=== PATIENT | female | born 1980 | race Caucasian/White ===

== ENCOUNTER 2019-06-12 13:51 | Emergency (ER) | payer OTHER, SELFPAY ==
[2019-06-12 14:02] VITALS: BP 112/65; PULSE 62; RESP 18; TEMP 36.3; O2SAT 100
--- NOTE | 2019-06-12 14:14 | ED.GENADULT ---
HPI - General Adult General Chief complaint: Urogenital-Female Stated complaint: Left side Pain Time Seen by Provider: 06/12/19 14:16 Source: patient and RN notes reviewed Mode of arrival: ambulatory Limitations: no limitations History of Present Illness HPI narrative: This is a 39 years old female presents to the office with multiple complaints. She complains of sinus congestion, and right ear cracking when she opens her mouth for three days. She also reports left upper quadrant abdominal pain for one week; sometimes pain radiated down to her left lower quadrant. Admits to history of kidney stone, symptom is reminiscent with her previous kidney stone; however pain last longer this time that previous time. She also reported nauseous; mostly in the morning. She also admits to history of constipation, normally takes Linzess for it however she has not been taking it because it was too expensive. She reports large BM yesterday; but it was hard stools where she has to push hard. No treatment prior to arrival.Denies concern for STD, , stated she has not had sexual intercourse for a while. She also admits that she did not drink enough water. Related Data Home Medications Medication Instructions Recorded Confirmed naltrexone 50 mg PO DAILY 06/12/19 06/12/19 spironolactone 100 mg PO DAILY 06/12/19 06/12/19 Allergies Allergy/AdvReac Type Severity Reaction Status Date / Time No Known Allergies Allergy Verified 06/12/19 14:06 Review of Systems Review of Systems: Narrative: CONSTITUTIONAL: Denies fever or chills ENT: Denies sore throat CARDIOVASCULAR: Denies chest pain RESPIRATORY: Denies cough GASTROINTESTINAL: Reports left side abdominal pain with nausea. Denies diarrhea. GENITOURINARY: Denies urinary symptoms or discharge SKIN: Denies rash MUSCULOSKELETAL: Denies flank pain NEUROLOGIC: Denies lightheaded PMFSH Past Medical History Medical History (Updated 06/12/19 @ 14:33 by LAXMI Drake) Anxiety and depression Asthma Hx of supraventricular tachycardia Comments At time of signature, I agree with nursing past medical, surgical, social and family history. There is no relevant family history pertinent to the presenting complaint. Exam Narrative: Exam Narrative: GENERAL: This is a well-nourished, well-developed patient, in no apparent distress. EYES: Sclera clear/white. Vision is grossly intact. EARS: External ears normal, auditory canals clear and without drainage, fluild level noted in both TMs; without perforation. Hearing grossly intact. NOSE: External nose normal with no obvious nasal discharge, nares without redness, no rhinorrhea. THROAT: Mucous membranes moist, posterior pharynx clear. NECK: Neck supple, non-tender without lymphadenopathy, masses or thyromegaly. CARDIOVASCULAR: Regular rate and rhythm without murmurs, gallops, or rubs. RESPIRATORY: Clear to auscultation. Breath sounds equal bilaterally. No wheezes, rales, or rhonchi. GASTROINTESTINAL: Abdomen soft, non-tender, nondistended. Bowel sounds are active. No hepato-splenomegaly, or palpable masses. No guarding.No CVA tenderness. Skin intact. NEURO: awake, alert, and oriented to person, place and time. There were no obvious focal neurologic abnormalities. Steady gait Rossana Coma Scale Eye Opening: Spontaneous 4 Rossana Coma Scale Motor: Obeys Commands 6 Rossana Coma Scale Verbal: Oriented 5 Course Vital Signs Vital signs: Vital Signs Temperature 97.3 F L 06/12/19 14:02 Pulse Rate 62 06/12/19 14:02 Respiratory Rate 18 06/12/19 14:02 Blood Pressure 112/65 06/12/19 14:02 Pulse Oximetry 100 06/12/19 14:02 Temperature 97.3 F L 06/12/19 14:02 Pulse Rate 62 06/12/19 14:02 Respiratory Rate 18 06/12/19 14:02 Blood Pressure 112/65 06/12/19 14:02 Pulse Oximetry 100 06/12/19 14:02 Medical Decision Making MDM Narrative Medical decision making narrative: Discharge instructions reviewed with patient,
== END 2019-06-12 14:35 | disposition home or self-care (01) ==
PROVIDERS: Emergency Provider Nurse Practitioner
DX: R31.9 Hematuria, unspecified (principal); Z87.19 Personal history of other diseases of the digestive system; J45.909 Unspecified asthma, uncomplicated
CPT/HCPCS: 81003; 87086; 99213; G0463

== ENCOUNTER 2019-10-22 13:17 | Emergency (ER) | payer OTHER, SELFPAY ==
--- NOTE | ~2019-10-22 | XR_ITS ---
EXAMINATION: XR chest 1V portable 10/22/2019 13:57 INDICATION: Weakness PROCEDURE: AP portable chest COMPARISON: Comparison to multiple prior studies sequentially, with oldest reviewed study dated 11/20. FINDINGS: The lungs are clear. The cardiomediastinal silhouette is within normal limits. There are no pleural effusions. There is no pneumothorax suspected. IMPRESSION: 1: NO ACUTE CARDIOPULMONARY DISEASE. Reviewed, dictated and finalized at location A.
[2019-10-22 13:21] VITALS: BP 126/81; PULSE 90; RESP 12; TEMP 37.2; O2SAT 100
[2019-10-22 13:27] VITALS: PULSE 74
--- NOTE | 2019-10-22 13:27 | ECG_ITS ---
Measurements Intervals [place] Rate: 77 P: -15 FL: 92 QRS: 64 QRSD: 85 T: 50 QT: 386 QTc: 437 Interpretive Statements SINUS RHYTHM WITH SHORT [place] INTERVAL INCOMPLETE RIGHT BUNDLE BRANCH BLOCK BASELINE ARTIFACT- I, II, III, AVL, AVF BORDERLINE ECG Electronically Signed On 10-22-2019 14:53:13 CDT by Balwinder Islas D.O.
[2019-10-22] MEDS: SODIUM CHLORIDE 0.9% IV 1,000 ML 999 ML IV CONT (13:39)
[2019-10-22 13:41] LABS: Basophils Percent Auto 0.3 % (0.2-1.2); Eosinophils Absolute Auto 0.1 K/mm3 (0-0.3); Eosinophils Percent Auto 1.3 % (0-4.4); Hematocrit 36.5 % (37.0-47.0); Hemoglobin 12.1 g/dL (12.0-15.0); Immature Granulocyte Absolute 0.03 K/mm3 (0.00-0.031); Immature Granulocyte Percent A 0.3 % (0-0.5); Lymphocytes Absolute Auto 2.06 K/mm3 (0.9-3.2); Lymphocytes Percent Auto 23.8 % (18.3-44.2); Mean Corpuscular HGB Conc 33.2 g/dl (32-36); Mean Corpuscular Hemoglobin 31.6 pg (26-34); Mean Corpuscular Volume 95.3 fl (80-100); Mean Platelet Volume 11.2 fl (7.4-10.4); Monocytes Absolute Auto 0.5 K/mm3 (0.1-0.6); Monocytes Percent Auto 5.3 % (2.6-8.5); Platelet Count Result 301 k/mm3 (150-375); Red Blood Count 3.83 M/mm3 (4.2-5.4); White Blood Count 8.7 K/mm3 (4.5-10.0)
--- NOTE | 2019-10-22 13:49 | ED.GENADULT ---
HPI - General Adult General Chief complaint: Weakness Stated complaint: dizzy Time Seen by Provider: 10/22/19 13:26 History of Present Illness HPI narrative: Patient is a 39 y/o female complaining of severe generalized weakness for 2 weeks. She states that her weakness is worsened by exertion. She denies any chest pain. She had an episode of tachycardia approximately 2 weeks ago with HR in 200s, but it resolved spontaneously. She has history of SVT. She has some SOB, poor appetite and nausea. She has no fever. Related Data Home Medications Medication Instructions Recorded Confirmed spironolactone 100 mg PO DAILY 06/12/19 06/12/19 alprazolam 0.5 mg PO PRN PRN 10/22/19 ampicillin 500 mg PO BID 10/22/19 cyclobenzaprine 5 mg PO PRN PRN 10/22/19 Allergies Allergy/AdvReac Type Severity Reaction Status Date / Time No Known Allergies Allergy Verified 10/22/19 13:28 Review of Systems Constitutional: Constitutional: Denies chills, Denies fever(s), Denies headache(s) and Reports weakness Eyes: Eyes: Denies blurry vision ENT: Denies headache(s) and Denies neck pain Cardiovascular: Cardiovascular: Denies chest pain, Reports rapid heart rate and Reports dyspnea Respiratory: Respiratory: Denies cough and Reports dyspnea Gastrointestinal: Gastrointestinal: Denies abdominal pain, Denies diarrhea, Denies nausea and Denies vomiting Genitourinary: Genitourinary: Denies hematuria and Denies dysuria Musculoskeletal: Musculoskeletal: Denies back pain and Denies neck pain Neurologic: Denies headache(s) and Denies weakness [facility] Past Medical History Medical History (Updated 10/22/19 @ 17:57 by Genevieve Fowler MD) Anxiety and depression Asthma Hx of supraventricular tachycardia Social History Social History Gender identity (if verbalized by the patient): Female Exam Const: General: no acute distress and well developed Orientation/consciousness: oriented to person, oriented to place, oriented to time and patient oriented x3 HENMT: Head: normocephalic Ears: external ears normal General nose exam: Normal external nose present Eyes: General: appearance normal, both eyes and all related structures Conjunctivae: conjunctivae normal Neck: Neck: normal visual inspection and full ROM Chest: Chest palpation & inspection: normal inspection of the chest and no tenderness Resp: Effort & Inspection: normal respiratory effort Auscultation: clear to auscultation bilaterally Cardio: Rate: regular rate Rhythm: regular rhythm GI: GI Palp: No abdominal tenderness and Yes Soft to palpation Skin: General skin exam: normal color and turgor normal Neuro: General: oriented to person, oriented to place, oriented to time and patient oriented x3 Cognition (Neuro): normal cognition Extrem: General: normal to inspection, full ROM and no pedal edema Psych: Appearance: grossly normal Mental Status: mental status grossly normal Affect: Anxious affect present Course Vital Signs Vital signs: Vital Signs Temperature 37.2 C 10/22/19 13:21 Pulse Rate 90 10/22/19 13:21 Respiratory Rate 12 10/22/19 13:21 Blood Pressure 126/81 10/22/19 13:21 Pulse Oximetry 100 10/22/19 13:21 Temperature 37.0 C 10/22/19 18:13 Pulse Rate 85 10/22/19 17:37 Respiratory Rate 15 10/22/19 17:37 Blood Pressure 98/60 L 10/22/19 17:37 Pulse Oximetry 100 10/22/19 17:37 Medical Decision Making Vital Signs Vital Signs: Vital Signs Temperature 37.2 C 10/22/19 13:21 Pulse Rate 90 10/22/19 13:21 Respiratory Rate 12 10/22/19 13:21 Blood Pressure 126/81 10/22/19 13:21 Pulse Oximetry 100 10/22/19 13:21 Temperature 37.0 C 10/22/19 18:13 Pulse Rate 85 10/22/19 17:37 Respiratory Rate 15 10/22/19 17:37 Blood Pressure 98/60 L 10/22/19 17:37 Pulse Oximetry 100 10/22/19 17:37 Lab Data Result diagrams: 10/22/19 13:34 10/22/19 13:34 Labs: Lab Results
[2019-10-22 13:53] LABS: Add Urine Microscopic? YES; Appearance Urine Clear (Clear); Bacteria Urine 1+ /hpf; Bilirubin Urine Negative (Negative); Blood Urine 1+ (Negative); Color Urine Straw (Yellow); Glucose Urine UA Negative (Negative); Ketones Urine Negative (Negative); Leukocyte Esterase Ur Negative LEU/UL (Negative); Mucus Urine Rare /lpf; Nitrate Urine Negative (Negative); Protein Urine Negative (Negative); RBC Urine 0-2 /hpf (0-2); Specific Grav Ur 1.009 (1.001-1.035); Squamous Epithelial Cell Urine Many /hpf (Few); Urobilinogen Urine Negative mg/dL (<2.0); WBC Urine 0-3 /hpf
[2019-10-22 13:55] LABS: Alanine Aminotransferase 8 U/L (4-35); Albumin Level 4.5 g/dL (3.5-5.1); Alkaline Phosphatase 45 U/L (38-126); Aspartate Amino Transferase 21 U/L (14-36); Bilirubin,Total 0.4 mg/dL (0.2-1.3); Blood Urea Nitrogen 11 mg/dL (7-17); Carbon Dioxide 26 mmol/L (22-30); Chloride 104 mmol/L (98-107); Estimated CRCL calculation 92 ml/min; Estimated Glomerular Filt Rate > 60; Glucose 103 mg/dL (65-105); Potassium 4.1 mmol/L (3.4-5.0); Sodium 137 mmol/L (137-145)
[2019-10-22 14:07] LABS: NT Pro B Type Natriuretic Pept 38 PG/ML (5-100); Troponin I < 0.012 ng/mL (0.000-0.034)
[2019-10-22 14:55] VITALS: BP 96/60; PULSE 76; RESP 26; O2SAT 100
[2019-10-22 16:20] VITALS: BP 93/51; PULSE 68; RESP 15; O2SAT 100
[2019-10-22 17:09] LABS: Troponin I < 0.012 ng/mL (0.000-0.034)
[2019-10-22 17:37] VITALS: BP 98/60; PULSE 85; RESP 15; O2SAT 100
[2019-10-22 18:13] VITALS: TEMP 37
== END 2019-10-22 18:16 | disposition home or self-care (01) ==
PROVIDERS: Emergency Provider Emergency Medicine
DX: R53.1 Weakness (principal); R00.2 Palpitations; F41.8 Other specified anxiety disorders; J45.909 Unspecified asthma, uncomplicated
CPT/HCPCS: 36415; 71045; 80053; 81001; 81025; 83880; 84443; 84484; 85025; 93005; 96360; 99284; J7030

== ENCOUNTER 2019-12-22 09:46 | Emergency (ER) | payer OTHER, SELFPAY ==
--- NOTE | ~2019-12-22 | XR_ITS ---
EXAMINATION: XR foot LT min 3V DATE: 12/22/2019 10:21 INDICATION: Left fifth toe injury. TECHNIQUE: 4 views of left foot were obtained. COMPARISON: None. FINDINGS: Bone alignment is normal. No fracture. There is mild osteoarthritis of first and fifth meta tarsophalangeal joints. IMPRESSION: 1. Mild polyarticular osteoarthritis. Reviewed, dictated and finalized at location A.
--- NOTE | 2019-12-22 09:52 | ED.GENADULT ---
HPI - General Adult General Chief complaint: Extremity Injury, Lower Stated complaint: inury right 5th toe Time Seen by Provider: 12/22/19 09:52 Source: patient Mode of arrival: ambulatory Limitations: no limitations History of Present Illness HPI narrative: 39-year-old female patient presents to the [facility] with complaints of left pinky toe pain. Patient states that she dropped the canister of her vacuum on it yesterday while wearing flip-flops. Patient states a pretty much did hit mostly the pinky toe. Patient states she has had pain when putting pressure on it and states she has been mostly walking on the ball of her left foot. Patient states that she did take some Tylenol yesterday but denies any ice or ibuprofen. Patient states she still does have sensation to the toe but is dull compared to the others. Related Data Home Medications Medication Instructions Recorded Confirmed levonorgestrel [Mirena] 1 device INTRAUTERINE ONCE 12/22/19 12/22/19 naltrexone microspheres [Vivitrol] 380 mg IM ONCE 12/22/19 12/22/19 Allergies Allergy/AdvReac Type Severity Reaction Status Date / Time No Known Allergies Allergy Verified 12/22/19 10:08 Review of Systems Review of Systems: Narrative: CONSTITUTIONAL: Denies fever, chills, or sweats. EYES: Denies visual changes, redness, or discharge. ENT: Denies rhinorrhea, congestion, sore throat, or otalgia. CARDIOVASCULAR: Denies chest pain, palpitations, or edema. RESPIRATORY: Denies cough or dyspnea. GASTROINTESTINAL: Denies abdominal pain, nausea, vomiting, or diarrhea. GENITOURINARY: Denies dysuria or hematuria. SKIN: Denies rash or itching. MUSCULOSKELETAL: Denies back pain, joint pain, or myalgia. Positive left pinky toe pain NEUROLOGIC: Denies headache, numbness, or weakness. PSYCHIATRIC: Denies anxiety or depression. [facility] Past Medical History Medical History (Updated 12/22/19 @ 10:31 by LAXMI Campos) Alcoholism Anxiety and depression Asthma Hx of supraventricular tachycardia Social History Social History Gender identity (if verbalized by the patient): Female Comments At the time of my signature I agree with nursing past medical history, surgical, social, and family history. There is no relevant family history pertinent to the presenting complaint. Exam Narrative: Exam Narrative: GENERAL: Well-appearing, well-nourished, and in no acute distress. HEAD: Normocephalic, atraumatic. EYES: PERRLA and EOMI. ENT: Nares clear, no rhinorrhea or epistaxis. Mucous membranes moist. NECK: Supple. No lymphadenopathy CHEST: Clear to auscultation. No respiratory distress. HEART: Regular rate and rhythm. No murmur heard. Normal peripheral pulses. ABDOMEN: Soft, nontender, nondistended, normal active bowel sounds. EXTREMITIES: Patient able to bear weight and ambulate but has increased pain to the left pinky toe. Patient does have slight swelling and ecchymosis noted to the left pinky toe with pain to palpation of the area. No lesions, ulcers or break in skin integrity. The L foot is without obvious asymmetry or deformity when compared to the R foot. nontender to palpation over the midfoot or hindfoot or sole. Normal plantar/dorsiflexion, inversion/eversion. Distal motor and neurovascular status are intact SKIN: Warm, dry, no rash. NEURO: No focal deficits. Alert and oriented x3. Course Reevaluation(s) Reevaluation #1: Reevaluated patient after her x-ray had resulted. Discussed with her that the x-ray does not show any acute fractures to her pinky toe. Discussed with her this most likely is a contusion or bruise from when she dropped the canister on her toe. Discussed with her that this should heal on its own with time. Discussed with patient she can take Tylenol and ibuprofen for the pain, elevate it and ice it as needed for swelling and pain. Patient verbalized understanding. Offered to give patient a postop shoe
[2019-12-22 10:02] VITALS: BP 113/73; PULSE 69; RESP 16; TEMP 37.2; O2SAT 100
== END 2019-12-22 10:34 | disposition home or self-care (01) ==
PROVIDERS: Emergency Provider Nurse Practitioner Family
DX: S90.122A Contusion of left lesser toe(s) without damage to nail, initial encounter (principal); W20.8XXA Other cause of strike by thrown, projected or falling object, initial encounter; J45.909 Unspecified asthma, uncomplicated
CPT/HCPCS: 73630; 99213; G0463

== ENCOUNTER 2020-09-20 08:29 | Outpatient (CLI) | payer OTHER, SELFPAY ==
--- NOTE | ~2020-09-20 | MM_ITS ---
EXAMINATION: MM screening shruthi BI w karen HISTORY: Screening TECHNIQUE: Craniocaudal and mediolateral oblique 3-D tomosynthesis images were obtained and synthetic 2-D images were generated. CAD analysis was submitted and interpreted. COMPARISON: No prior mammogram is available for comparison at this institution. BREAST PARENCHYMAL COMPOSITION: The breasts are heterogenously dense, which may obscure small masses FINDINGS: Bilateral breast asymmetries scattered throughout both breasts. There are no suspicious sherrill cifications. IMPRESSION: 1. Bilateral breast asymmetries. 2. Additional mammographic views and possible breast ultrasound are recommended BI-RADS Category 0: Incomplete: Needs additional imaging evaluation. Reviewed, dictated and finalized at location A.
== END 2020-09-20 08:30 | disposition home or self-care (01) ==
LOC: ANHIMG 08:32
PROVIDERS: PCP Nurse Practitioner; Visit Provider Obstetrics & Gynecology
DX: Z12.31 Encounter for screening mammogram for malignant neoplasm of breast (principal); R92.8 Other abnormal and inconclusive findings on diagnostic imaging of breast
CPT/HCPCS: 77063; 77067

== ENCOUNTER 2020-10-17 12:14 | Outpatient (CLI) | payer OTHER, SELFPAY ==
--- NOTE | ~2020-10-17 | MMUS_ITS ---
EXAMINATION: MM diagnostic mammo BI, US breast BI limited HISTORY: Bilateral breast asymmetries on screening mammogram TECHNIQUE: Additional 3-D tomosynthesis images of the breasts were performed and synthetic 2-D images were generated. CAD analysis was submitted and interpreted. High resolution limited bilateral breast ultrasound was performed. COMPARISON: 09/20/2020 BREAST PARENCHYMAL COMPOSITION: The breasts are heterogeneously dense, which may obscure small masses . FINDINGS: MAMMOGRAPHIC FINDINGS: No definite asymmetry persists with spot compression of the breasts. No suspicious mass, calcificatio n, or architectural distortion. Intramammary lymph node is noted far posterior third of the upper out er quadrant of the left breast. ULTRASOUND: Right breast: There is a possible 8 mm x 2 mm oval, hypoechoic mass with indistinct margins at the 2: 00 location near the nipple with no posterior features or internal vascularity Left breast: There is a 6 mm x 4 mm oval, circumscribed, parallel, hypoechoic mass with mild posterio r shadowing and no internal vascularity at the 8:00 location 2 cm from the nipple. An 8 mm x 4 mm ova l, circumscribed, parallel, complex cystic and solid mass with no posterior features or internal vasc ularity is seen at the 12:00 location 1 cm from the nipple. There is an 8 mm cyst at 12:00 location. IMPRESSION: 1. Indeterminate mass at 8:00 location 2 cm from the nipple in the left breast for which ultrasound-g uided biopsy is recommended. 2. Additional probably benign sonographically detected masses at the 2:00 location in the right breas t and the 12:00 location in the left breast for which follow-up targeted ultrasound in six months is recommended. BI-RADS category 4, suspicious findings. Reviewed, dictated and finalized at location A. IMPRESSION: 1. Indeterminate mass at 8:00 location 2 cm from the nipple in the left breast for which ultrasound-guided biopsy is recommended. 2. Additional probably benign sonographically detected masses at the 2:00 locat ion in the right breast and the 12:00 location in the left breast for which fol low-up targeted ultrasound in six months is recommended. BI-RADS category 4, suspicious findings.
== END 2020-10-17 12:15 | disposition home or self-care (01) ==
LOC: ANHIMG 12:15
PROVIDERS: PCP Nurse Practitioner; Visit Provider Obstetrics & Gynecology
DX: R92.8 Other abnormal and inconclusive findings on diagnostic imaging of breast (principal); N64.89 Other specified disorders of breast; N63.24 Unspecified lump in the left breast, lower inner quadrant
CPT/HCPCS: 76642; 77066

== ENCOUNTER 2021-01-29 09:51 | Emergency (ER) | payer OTHER, SELFPAY ==
[2021-01-29 10:59] VITALS: BP 103/65; PULSE 61; RESP 16; TEMP 36.9; O2SAT 99
[2021-01-29] MEDS: TETANUS,DIPHTHERIA,AC PERTUSSIS ADULT (0.5 ML) BOOSTRIX IM (11:10)
--- NOTE | 2021-01-29 12:01 | ED.GENADULT ---
HPI - General Adult General Chief complaint: Animal Bite Stated complaint: dog bite Source: patient Mode of arrival: ambulatory Limitations: no limitations History of Present Illness HPI narrative: Patient is a 40-year-old female who presents to the urgent care via POV for evaluation of a dog bite that occurred last night. She states she was bitten on her right pinky finger. She reports bruising, swelling, and pain. Pain is resolved with remaining still and worsens with movement. She states her dog bit her because it is a stupid dog . Dog is up-to-date on vaccinations per patient. Animal control was not notified. Related Data Home Medications Medication Instructions Recorded Confirmed levonorgestrel [Mirena] 1 device INTRAUTERINE ONCE 12/22/19 01/29/21 naltrexone microspheres [Vivitrol] 380 mg IM ONCE 12/22/19 01/29/21 alprazolam 0.5 mg PO DAILY 01/29/21 01/29/21 famotidine 40 mg PO DAILY 01/29/21 01/29/21 fluticasone propionate 1 mcg INTRANASAL DAILY 01/29/21 01/29/21 Allergies Allergy/AdvReac Type Severity Reaction Status Date / Time No Known Allergies Allergy Verified 01/29/21 10:57 Review of Systems Review of Systems: Pertinent negatives: fever, chills, sweats, change in appetite, poor p.o. intake, malaise, rash, warmth, numbness, tingling, loss of sensation, deformity, decreased range of motion, weakness, difficulty with ambulation/coordination, nausea, vomiting, lymphadenopathy, shortness of breath, chest pain, heart palpitations, and heart murmur. PMFSH Past Medical History Medical History Alcoholism Anxiety and depression Asthma Hx of supraventricular tachycardia Social History Social History Gender identity (if verbalized by the patient): Female Comments I have reviewed and agree with the patient's past medical, surgical, social, and family hx as documented by the RN. There is no relevant family history pertinent to the presenting complaint. Exam Narrative: GENERAL: Well-appearing, well-nourished, and in no acute distress. HEAD: Normocephalic, atraumatic. NECK: Supple. No Lymphadenopathy or nuchal rigidity appreciated. CHEST: Bilateral lung chavez are clear to auscultation. No respiratory distress. No evidence of cough or pleuritic cp upon examination. HEART: Regular rate and rhythm. No murmur, gallop, or rub heard. EXTREMITIES: 0.5 cm abrasion and small contusion with mild swelling noted to dorsal aspect of right fifth digit. No evidence of injury, decreased ROM, cyanosis, laceration, deformity, rash, or puncture. Mild pain elicited with active/passive flexion and extension of right fifth digit.. No evidence of dislocation, ligament laxity, effusion, or pain at rest. Pulses palpable at 2+, strength 5/5, and cap refill < 3 seconds in affected extremity. DTRs normal. Gait normal. SKIN: Warm, dry, no rash. NEURO: No focal deficits. Alert and oriented x3. Course Course Emergency Course: The patient/guardian displays adequate decision making capability and despite a detailed discussion of alternatives, benefits, risks, and consequences refuses x-ray. Vital Signs Vital signs: Vital Signs Temperature 98.5 F 01/29/21 10:59 Pulse Rate 61 01/29/21 10:59 Respiratory Rate 16 01/29/21 10:59 Blood Pressure 103/65 01/29/21 10:59 Pulse Oximetry 99 01/29/21 10:59 Temperature 98.5 F 01/29/21 10:59 Pulse Rate 61 01/29/21 10:59 Respiratory Rate 16 01/29/21 10:59 Blood Pressure 103/65 01/29/21 10:59 Pulse Oximetry 99 01/29/21 10:59 Reviewed Procedures Orthopedic Splinting/Casting Injury #1: Splinting/Casting Date: 01/29/21 Splinting/Casting Time: 12:15 Side: right Upper Extremity Injury Location: finger (Fifth digit) Upper Extremity Immobilizer: aluminum form splint Pre-Procedure Neuro Vascular Exam: annette
== END 2021-01-29 12:20 | disposition home or self-care (01) ==
PROVIDERS: Emergency Provider Nurse Practitioner Family
DX: S60.416A Abrasion of right little finger, initial encounter (principal); W54.0XXA Bitten by dog, initial encounter; Z23 Encounter for immunization; J45.909 Unspecified asthma, uncomplicated; F41.9 Anxiety disorder, unspecified
CPT/HCPCS: 29130; 90471; 90715; 99213; G0463

== ENCOUNTER 2021-06-27 16:44 | Emergency (ER) | payer OTHER, SELFPAY ==
[2021-06-27] VITALS (14 sets, daily range): BP systolic 108–128; BP diastolic 63–83; PULSE 68–92; RESP 11–27; TEMP 37.2; O2SAT 99–100
--- NOTE | ~2021-06-27 | XR_ITS ---
EXAMINATION: XR chest 2V DATE: 06/27/2021 17:44 INDICATION: Left-sided chest pain TECHNIQUE: PA and lateral views of the chest are obtained. COMPARISON: 10/22/2019 FINDINGS: The lungs are free of acute opacities. There is no pleural effusion or pneumothorax. The ca rdiomediastinal silhouette is normal. The visualized bones and soft tissues are unremarkable. IMPRESSION: 1. No acute cardiopulmonary abnormality. Reviewed, dictated and finalized at location F. OGRAPHER MODEL
--- NOTE | 2021-06-27 17:23 | ECG_ITS ---
Measurements Intervals [place] Rate: 86 P: 69 [place]: 120 QRS: 61 QRSD: 77 T: 52 QT: 379 QTc: 454 Interpretive Statements SINUS RHYTHM INCOMPLETE RIGHT BUNDLE BRANCH BLOCK BASELINE ARTIFACT- II, AVF BORDERLINE ECG Electronically Signed On 06-27-2021 20:53:41 [employer] by Balwinder Islas D.O.
[2021-06-27 18:02] LABS: Basophils Absolute Auto 0.1 K/mm3 (0.0-0.1); Basophils Percent Auto 0.7 % (0.2-1.2); Eosinophils Absolute Auto 0.1 K/mm3 (0-0.3); Eosinophils Percent Auto 0.9 % (0-4.4); Hemoglobin 13.2 g/dL (12.0-15.0); Immature Granulocyte Absolute 0.02 K/mm3 (0.00-0.031); Immature Granulocyte Percent A 0.2 % (0-0.5); Lymphocytes Percent Auto 29.4 % (18.3-44.2); Mean Corpuscular Hemoglobin 31.7 pg (26-34); Mean Corpuscular Volume 96.2 fl (80-100); Mean Platelet Volume 11.2 fl (7.4-10.4); Monocytes Absolute Auto 0.5 K/mm3 (0.1-0.6); Monocytes Percent Auto 6.3 % (2.6-8.5); Neutrophils Absolute Auto 5.1 K/mm3 (1.3-6.7); Neutrophils Percent Auto 62.5 % (45.5-73.1); Platelet Count Result 238 k/mm3 (150-375); Red Blood Count 4.16 M/mm3 (4.2-5.4); Red Cell Distribution Width 12.2 % (11.5-14.5); White Blood Count 8.2 K/mm3 (4.5-10.0)
[2021-06-27 18:12] LABS: Partial Thromboplastin Time 29.1 SECONDS (22.3-36.8); Prothrombin Time 13.1 Seconds (11.1-14.7)
[2021-06-27 18:22] LABS: Alanine Aminotransferase 13 U/L (4-35); Albumin Level 4.5 g/dL (3.5-5.1); Alkaline Phosphatase 47 U/L (38-126); Anion Gap 7 mmol/L (8-16); Aspartate Amino Transferase 27 U/L (14-36); Bilirubin,Total 0.4 mg/dL (0.2-1.3); Blood Urea Nitrogen 10 mg/dL (7-17); Calcium 8.9 mg/dL (8.4-10.2); Carbon Dioxide 24 mmol/L (22-30); Chloride 105 mmol/L (98-107); Estimated Glomerular Filt Rate > 60; Glucose 104 mg/dL (65-110); Lipase 125 U/L (23-300); Potassium 3.8 mmol/L (3.4-5.0); Sodium 136 mmol/L (137-145)
[2021-06-27 18:33] LABS: Troponin I < 0.012 ng/mL (0.000-0.034)
[2021-06-27] MEDS: BELLADONNA ALK/PHENOB ELIX 10 ML, MAG HYDROX/ALUMINUM HYD/SIMETH 30 ML, LIDOCAINE HCL 2... PO (18:47)
--- NOTE | 2021-06-27 18:54 | ED.BACK ---
HPI - Back Pain/Injury General Chief Complaint: Chest Pain <Inga Alcaraz APRN - Last Filed: 06/27/21 22:54> Stated Complaint: back pain, chest pain <Inga Alcaraz APRN - Last Filed: 06/27/21 22:54> Time Seen by Provider: 06/27/21 18:02 <Inga Alcaraz APRN - Last Filed: 06/27/21 22:54> Source: patient <Inga Alcaraz APRN - Last Filed: 06/27/21 22:54> Mode of arrival: ambulatory <Inga Alcaraz APRN - Last Filed: 06/27/21 22:54> Limitations: no limitations <Inga Alcaraz APRN - Last Filed: 06/27/21 22:54> History of Present Illness HPI Narrative: 41-year-old female with history of back issues and costochondritis presents today with complaints of back pain that radiated into her chest and down her left arm. Patient states the pain started at 10:00 this morning. Patient denies any trauma but did lift a tuba onto her bus today. Patient states this is something she normally does on Mondays and Fridays. Patient had taken a Tylenol at noon and 2 baby aspirin at 2 PM with some relief noted. At current time patient denies any left arm pain or back pain but does admit to some indigestion pain. Patient with burning rated at 3 out of 4. Patient did have some dizziness on the bus today which did cause some anxiety. Patient took Xanax today also. Her plan was to go home and take a muscle relaxer until the pain went down her left arm. Patient denies any medical history of hypertension, CAD, or high cholesterol. <Inga Alcaraz APRN - Last Filed: 06/27/21 22:54> Related Data Home Medications: Home Medications Medication Instructions Recorded Confirmed levonorgestrel [Mirena] 1 device INTRAUTERINE ONCE 12/22/19 06/27/21 alprazolam 0.5 mg PO DAILY 01/29/21 06/27/21 <Inga Alcaraz APRN - Last Filed: 06/27/21 22:54> Allergies/Adverse Reactions: Allergies Allergy/AdvReac Type Severity Reaction Status Date / Time No Known Allergies Allergy Verified 06/27/21 17:54 <Inga Alcaraz SENIOR DEVOPS ENGINEER - Last Filed: 06/27/21 22:54> Review of Systems Review of Systems: CONSTITUTIONAL: Denies fever, chills, or sweats. EYES: Denies visual changes, redness, or discharge. ENT: Denies rhinorrhea, congestion, sore throat, or otalgia. CARDIOVASCULAR: positve for chest pain, palpitations (chronic issues). Denies edema RESPIRATORY: Denies cough or dyspnea. GASTROINTESTINAL: Denies abdominal pain, nausea, vomiting, or diarrhea. GENITOURINARY: Denies dysuria or hematuria. SKIN: Denies rash or itching. MUSCULOSKELETAL: Denies joint pain, or myalgia. Endorses back pain. NEUROLOGIC: Denies headache, numbness, dizziness, or weakness. PSYCHIATRIC: Denies anxiety or depression. <Inga Alcaraz SENIOR DEVOPS ENGINEER - Last Filed: 06/27/21 22:54> PMFSH Past Medical History Medical History: Medical History Alcoholism Anxiety and depression Asthma Hx of supraventricular tachycardia <Inga Alcaraz, SENIOR DEVOPS ENGINEER - Last Filed: 06/27/21 22:54> Social History Social History: Social History Gender identity (if verbalized by the patient): Female <Inga Alcaraz SENIOR DEVOPS ENGINEER - Last Filed: 06/27/21 22:54> Exam Narrative: Right GENERAL: Well-appearing, well-nourished, and in no acute distress. HEAD: Normocephalic, atraumatic. EYES: PERRLA and EOMI. ENT: Nares clear, no rhinorrhea or epistaxis. Mucous membranes moist. Oropharynx without tonsillar hypertrophy exudate or other lesions. Bilateral TMs pearly stroud nonbulging NECK: Supple. No adenopathy or masses. No carotid bruits or JVD CHEST: Clear to auscultation. No respiratory distress. No wheezes rales or rhonchi. No pain with palpation HEART: Regular rate and rhythm. No murmur heard. Normal peripheral pulses. ABDOMEN: Soft, nontender, nondistended, normal active bowel sounds. EXTREMITIES: Normal range of motion. No edema. SKIN: Warm, dry, no rebecca
--- NOTE | 2021-06-27 19:17 | PC.NURSE ---
Report received from GARLAND Jacobs. Denies chest pain at present. Made aware of pending results.
== END 2021-06-27 20:27 | disposition home or self-care (01) ==
PROVIDERS: Emergency Medicine; Emergency Provider Nurse Practitioner Family
DX: R07.89 Other chest pain (principal); K21.9 Gastro-esophageal reflux disease without esophagitis; J45.909 Unspecified asthma, uncomplicated; F41.9 Anxiety disorder, unspecified; F32.A Depression, unspecified; I45.10 Unspecified right bundle-branch block
CPT/HCPCS: 36415; 71046; 80053; 83690; 84484; 85025; 85610; 85730; 93005; 99284; A9270

== ENCOUNTER 2022-02-13 11:00 | Outpatient (CLI) | payer OTHER, SELFPAY ==
--- NOTE | ~2022-02-13 | MMUS_ITS ---
EXAMINATION: MM diagnostic shruthi BI w karen, US breast RT complete, US breast LT limited HISTORY: Follow-up breast masses. TECHNIQUE: Additional 3-D tomosynthesis images of the breasts were performed and synthetic 2-D images were generated. CAD analysis was submitted and interpreted. High resolution complete right and limit ed left breast ultrasound was performed. COMPARISON: Comparison to multiple prior studies sequentially, with oldest reviewed study dated 09/20. BREAST PARENCHYMAL COMPOSITION: The breasts are heterogeneously dense, which may obscure small masses FINDINGS: MAMMOGRAPHIC FINDINGS: The breasts are stable. No new masses, calcifications or architectural distortion in either breast to suggest malignancy. ULTRASOUND: Complete right breast US of all 4 quadrants of the breasts and retroareolar region was reviewed. At 1 2:00, 3 cm from the nipple, there is a 6 mm intramammary lymph node. At 6:00, 5 cm from the nipple, t here is a cluster of microcysts measuring 4 mm. At 9:00, 5 cm from the nipple there is a cluster of m icrocysts measuring 7 x 4 x 2 mm. No suspicious masses are identified in the right breast to suggest malignancy. Limited left breast ultrasound: At 8:00, 3 cm from the nipple, there is an oval hypoechoic mass with posterior shadowing measuring 6 x 5 x 3 mm compared with 8 x 2 x 5 mm on prior examination. There is parallel orientation. IMPRESSION: 1. No evidence for malignancy in the right breast. Benign findings. 2: No significant change to hypoechoic left breast mass at 8:00, 3 cm from the nipple, allowing for d ifferences of technique. This mass is likely benign. BI-RADS CATEGORY 3-PROBABLY BENIGN FINDING RECOMMENDATION: Six-month follow-up diagnostic left mammogram and ultrasound recommended. Reviewed, dictated and finalized at location A. IMPRESSION: 1. No evidence for malignancy in the right breast. Benign findings. 2: No significant change to hypoechoic left breast mass at 8:00, 3 cm from the nipple, allowing for differences of technique. This mass is likely benign. BI-RADS CATEGORY 3-PROBABLY BENIGN FINDING RECOMMENDATION: Six-month follow-up diagnostic left mammogram and ultrasound re commended. IMPRESSION: 1. No evidence for malignancy in the right breast. Benign findings. 2: No significant change to hypoechoic left breast mass at 8:00, 3 cm from the nipple, allowing for differences of technique. This mass is likely benign. BI-RADS CATEGORY 3-PROBABLY BENIGN FINDING RECOMMENDATION: Six-month follow-up diagnostic left mammogram and ultrasound re commended.
== END 2022-02-13 11:01 | disposition home or self-care (01) ==
PROVIDERS: Visit Provider Obstetrics & Gynecology
DX: R92.8 Other abnormal and inconclusive findings on diagnostic imaging of breast (principal)
CPT/HCPCS: 76641; 76642; 77062; 77066; G0279

== ENCOUNTER 2022-03-09 19:39 | Emergency (ER) | payer OTHER, SELFPAY ==
--- NOTE | ~2022-03-09 | XR_ITS ---
EXAM: XR shoulder LT min 2V DATE: 03/09/2022 19:58 HISTORY: lt shoulder pain, . COMPARISON: None available. FINDINGS: Normal mineralization. No fracture or dislocation. No lytic or blastic lesion. Joint space s are maintained. No erosion or periosteal change. Soft tissues within normal limits. IMPRESSION: No acute osseous finding in the left shoulder. Reviewed, dictated and finalized at location K. EN THERAPY TEACHER
[2022-03-09 19:46] VITALS: BP 120/65; PULSE 67; RESP 16; TEMP 37.3; O2SAT 100
--- NOTE | 2022-03-09 20:10 | ED.UPPEXIN ---
HPI - Extremity Injury (Upper) General Chief Complaint: Extremity Injury, Upper Stated Complaint: Left Shoulder Pain Time Seen by Provider: 03/09/22 20:10 Source: patient, RN notes reviewed and old records reviewed Mode of arrival: ambulatory Limitations: no limitations History of Present Illness HPI narrative: 42-year-old female presents to the [facility] with complaints of left shoulder pain since Wednesday, 3 days. 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 Was having trouble opening and closing a window. Related Data Home Medications Medication Instructions Recorded Confirmed levonorgestrel 20 mcg/24 hours (8 1 device intrauterine ONCE 12/22/19 03/09/22 yrs) 52 mg intrauterine device (Mirena) Allergies Allergy/AdvReac Type Severity Reaction Status Date / Time No Known Allergies Allergy Verified 03/09/22 19:49 Review of Systems Review of Systems: All systems reviewed & are unremarkable except as noted in HPI and below Constitutional: Constitutional: Reports no additional constitutional complaints, Denies chills and Denies fever(s) Eyes: Eyes: Reports no additional eye complaints ENT: Reports system reviewed and no additional complaints, except as documented Cardiovascular: Cardiovascular: Reports no additional cardiovascular complaints Respiratory: Respiratory: Reports no additional respiratory complaints Gastrointestinal: Gastrointestinal: Reports no additional gastrointestinal complaints Musculoskeletal: Musculoskeletal: Reports arthralgias (Left anterior shoulder) Integumentary/Breasts: Skin/Breast: Reports system reviewed and no additional complaints, except as docu Neurologic: Reports system reviewed and no additional complaints, except as documented Psychiatric: Psychiatric: Reports no additional psychiatric complaints Allergic/Immunologic: Allergic/Immunologic: Reports no additional allergic/immunologic complaints [facility] Past Medical History Medical History Alcoholism Anxiety and depression Asthma Bloating Hx of colonic polyps Hx of supraventricular tachycardia Indigestion Irritable bowel syndrome with constipation LLQ abdominal tenderness LUQ abdominal pain Umbilical pain Social History Social History Smoking status: Never smoker Gender identity (if verbalized by the patient): Female Comments At the time of my signature, I reviewed and agree with the nursing past medical, surgical, social, and family history. There is no relevant family history pertinent to the patient complaint. Exam Const: General: healthy appearing, comfortable, no acute distress, well developed, alert and well nourished Nutritional Appearance: well nourished Orientation/consciousness: patient oriented x3 Limitations: no limitations HENMT: Head: normal to inspection Ears: external ears normal Face/Nose/Sinus: Normal external nose present Eyes: General: appearance normal, both eyes and all related structures Pupils: Equal, round and reactive pupils present Neck: Neck: normal visual inspection, full ROM, no lymphadenopathy and no meningeal signs Chest: Chest palpation & inspection: normal inspection of the chest Resp: Effort & Inspection: normal respiratory effort and no use of accessory muscles Auscultation: clear to auscultation bilaterally, no crackles, no rales, no rhonchi and no wheezes Cardio: Rate: regular rate Rhythm: regular rhythm GI: GI Palp: Yes Soft to palpation and No Tenderness to palpation present (GI) Back/Spine/Pelvis: Cervical Spine: cervical ROM normal and No Cervical spine tenderness Thoracic/Lumbar Spine: thoracic and lumbar spine normal to inspection and thoraco-lumbar ROM normal Skin: General skin exam: normal color Rashes: no rashes Wounds: no wounds Neuro: General: patient oriented x3, moves all extremities, no meningeal signs and no f
== END 2022-03-09 20:25 | disposition home or self-care (01) ==
PROVIDERS: Emergency Provider Nurse Practitioner
DX: S29.011A Strain of muscle and tendon of front wall of thorax, initial encounter (principal); X50.3XXA Overexertion from repetitive movements, initial encounter; Y99.0 Civilian activity done for income or pay; J45.909 Unspecified asthma, uncomplicated
CPT/HCPCS: 73030; 99213; G0463

== ENCOUNTER 2022-03-22 12:35 | Emergency (ER) | payer OTHER, SELFPAY ==
--- NOTE | ~2022-03-22 | XR_ITS ---
EXAMINATION: XR chest 2V Exam Date/Time: 03/22/2022 14:20 SENIOR MANAGING DIRECTOR HISTORY: LEFT SIDED chest pain Comparison: 06/27/2021. RESULT: Lines, tubes, and devices: None. Lungs and pleura: Clear. Cardiomediastinal silhouette: Stable. Other: No acute osseous or upper abdominal finding. IMPRESSION: No acute cardiopulmonary process. Reviewed, dictated and finalized at location K. OR MANAGING DIRECTOR
--- NOTE | 2022-03-22 12:36 | ECG_ITS ---
Measurements Intervals [place] Rate: 83 P: 67 VT: 122 QRS: 64 QRSD: 79 T: 59 QT: 379 QTc: 446 Interpretive Statements SINUS RHYTHM INCOMPLETE RIGHT BUNDLE BRANCH BLOCK BASELINE ARTIFACT- I, II, III, AVR, AVL BORDERLINE ECG COMPARED TO ECG 06/27/2021 17:28:39 NO SIGNIFICANT CHANGES Electronically Signed On 03-22-2022 17:01:51 PAPER CONSERVATOR by Balwinder Islas D.O.
[2022-03-22 12:46] VITALS: BP 133/86; PULSE 103; RESP 14; TEMP 37.5; O2SAT 100
[2022-03-22 13:28] LABS: Basophils Percent Auto 0.6 % (0.2-1.2); Eosinophils Absolute Auto 0.1 K/mm3 (0-0.3); Eosinophils Percent Auto 1.5 % (0-4.4); Hematocrit 40.2 % (37.0-47.0); Hemoglobin 13.5 g/dL (12.0-15.0); Immature Granulocyte Absolute 0.03 K/mm3 (0.00-0.031); Immature Granulocyte Percent A 0.4 % (0-0.5); Lymphocytes Absolute Auto 1.89 K/mm3 (0.9-3.2); Lymphocytes Percent Auto 28.3 % (18.3-44.2); Mean Corpuscular HGB Conc 33.6 g/dl (32-36); Mean Corpuscular Hemoglobin 31.1 pg (26-34); Mean Corpuscular Volume 92.6 fl (80-100); Mean Platelet Volume 10.6 fl (7.4-10.4); Monocytes Absolute Auto 0.5 K/mm3 (0.1-0.6); Monocytes Percent Auto 7.3 % (2.6-8.5); Neutrophils Absolute Auto 4.1 K/mm3 (1.3-6.7); Neutrophils Percent Auto 61.9 % (45.5-73.1); Platelet Count Result 307 k/mm3 (150-375); Red Blood Count 4.34 M/mm3 (4.2-5.4); Red Cell Distribution Width 12.1 % (11.5-14.5); White Blood Count 6.7 K/mm3 (4.5-10.0)
[2022-03-22 13:37] LABS: Alanine Aminotransferase 20 U/L (6-35); Albumin Level 4.6 g/dL (3.5-5.1); Alkaline Phosphatase 49 U/L (38-126); Anion Gap 10 mmol/L (8-16); Aspartate Amino Transferase 32 U/L (14-36); Bilirubin,Total 0.6 mg/dL (0.2-1.3); Blood Urea Nitrogen 8 mg/dL (7-17); Calcium 9.1 mg/dL (8.4-10.2); Carbon Dioxide 25 mmol/L (22-30); Chloride 104 mmol/L (98-107); Estimated CRCL calculation 90 ml/min; Estimated Glomerular Filt Rate > 60; Glucose 97 mg/dL (65-110); Lipase 91 U/L (23-300); Sodium 139 mmol/L (137-145)
[2022-03-22 13:44] LABS: Partial Thromboplastin Time 30.5 SECONDS (22.3-36.8)
[2022-03-22 13:49] LABS: Prothrombin Time 12.9 Seconds (11.1-14.7); Troponin I < 0.012 ng/mL (0.000-0.034)
--- NOTE | 2022-03-22 15:19 | ED.ARRPALP ---
HPI - Arrhythmia/Palpitations General Chief Complaint: Arrhythmia/Palpitations Stated Complaint: low heart rate Time Seen by Provider: 03/22/22 14:25 History of Present Illness HPI narrative: For 2-year-old female presented the emergency department for evaluation of multiple complaints including pain in her left shoulder for the weeks and also new onset of heart palpitations and generalized fatigue. Patient reports she did have prior imaging of the left shoulder was told she may have a shoulder strain. 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 Patient reports he does have a previous diagnosis of arthritis as well. Patient also reports she has a prior history of abnormal heart rhythm. Patient states today she had a lot of caffeine but noticed that her heart rate was still low and she was still fairly fatigued. Related Data Home Medications Medication Instructions Recorded Confirmed levonorgestrel 20 mcg/24 hours (8 1 device intrauterine ONCE 12/22/19 03/09/22 yrs) 52 mg intrauterine device (Mirena) Allergies Allergy/AdvReac Type Severity Reaction Status Date / Time No Known Allergies Allergy Verified 03/22/22 15:34 Review of Systems Review of Systems: CONSTITUTIONAL: Denies fever, chills, or sweats. EYES: Denies visual changes, redness, or discharge. ENT: Denies rhinorrhea, congestion, sore throat, or otalgia. CARDIOVASCULAR: See HPI RESPIRATORY: Denies cough or dyspnea. GASTROINTESTINAL: Denies abdominal pain, nausea, vomiting, or diarrhea. GENITOURINARY: Denies dysuria or hematuria. SKIN: Denies rash or itching. MUSCULOSKELETAL: See HPI NEUROLOGIC: Denies headache, numbness, or weakness. PMFSH Past Medical History Medical History Alcoholism Anxiety and depression Asthma Bloating Hx of colonic polyps Hx of supraventricular tachycardia Indigestion Irritable bowel syndrome with constipation LLQ abdominal tenderness LUQ abdominal pain Umbilical pain Social History Social History Smoking status: Never smoker Gender identity (if verbalized by the patient): Female Exam Narrative: APPEARANCE: Well appearing, no pain, no distress, well-nourished. HEAD: normocephalic, atraumatic. EYES: PERRLA/EOMI, conjunctivae clear. NOSE: Normal no drainage EARS:TMS clear with good light reflex. THROAT: Pharynx clear, no exudate. NECK: Supple. No adenopathy, no masses. RESPIRATORY: Airway patent, respirations nonlabored. Clear to auscultation bilaterally, no rales, rhonchi, wheezing. CARDIOVASCULAR: Regular rate and rhythm without murmurs rubs or gallops. ABDOMINAL: Soft, nontender, nondistended, normal bowel sounds MUSCULOSKELETAL: Moves all extremities. Strength/ROM intact, No edema, No calf tenderness. NEURO: Alert. Cranial nerves II through XII intact. Grossly intact SKIN: Warm, dry. Normal Color Course Course Emergency Course: Patient did feel improved with treatment. Patient is afebrile with no leukocytosis. BMP is within normal limits. Patient was negative for flu and COVID. Chest ray showed no acute cardiopulmonary abnormality. Patient was updated the results of her work-up. Patient was comfortable plan for discharge and close follow-up. Vital Signs Vital signs: Vital Signs Temperature 99.5 F 03/22/22 12:46 Pulse Rate 103 H 03/22/22 12:46 Respiratory Rate 14 03/22/22 12:46 Blood Pressure 133/86 03/22/22 12:46 Pulse Oximetry 100 03/22/22 12:46 Oxygen Delivery Room Air 03/22/22 12:46 Temperature 99.5 F 03/22/22 12:46 Pulse Rate 89 03/22/22 17:48 Respiratory Rate 18 03/22/22 17:48 Blood Pressure 113/66 03/22/22 17:48 Pulse Oximetry 100 03/22/22 17:48 Oxygen Delivery Room Air 03/22/22 12:46 MDM - Arrhythmia/Palpitations Lab Data Attestation: I reviewed the patient's lab results.
[2022-03-22 15:31] VITALS: PULSE 76
--- NOTE | 2022-03-22 15:33 | PC.NURSE ---
Pt said she did take some ASA
[2022-03-22 15:40] LABS: D Dimer 0.38 ug/mL (<0.48)
[2022-03-22 16:07] LABS: Influenza A QL RT-PCR Negative (Negative); Influenza B QL RT-PCR Negative (Negative); SARS-CoV-2 RNA PCR Negative
[2022-03-22 16:54] LABS: Troponin I < 0.012 ng/mL (0.000-0.034)
[2022-03-22 17:48] VITALS: BP 113/66; PULSE 89; RESP 18; O2SAT 100
== END 2022-03-22 17:30 | disposition home or self-care (01) ==
PROVIDERS: Physician Assistant; Emergency Provider Emergency Medicine
DX: R00.2 Palpitations (principal); M25.512 Pain in left shoulder; Z20.822 Contact with and (suspected) exposure to COVID-19; J45.909 Unspecified asthma, uncomplicated; K58.1 Irritable bowel syndrome with constipation; M19.90 Unspecified osteoarthritis, unspecified site; Z86.010 Personal history of colon polyps; I45.10 Unspecified right bundle-branch block
CPT/HCPCS: 36415; 71046; 80053; 83690; 84484; 85025; 85380; 85610; 85730; 87636; 93005; 99284

== ENCOUNTER 2022-04-28 00:47 | Day surgery (SDC) | payer OTHER, SELFPAY ==
[2022-04-14 11:21] VITALS: BMI 21.5
[2022-04-28 10:54] VITALS: BP 103/70; PULSE 78; RESP 16; TEMP 37.4; O2SAT 100
[2022-04-28] MEDS: LACTATED RINGERS 1,000 ML 150 ML IV CONT (10:58)
--- NOTE | 2022-04-28 11:32 | P.PNAN_ITS ---
Anes - Initial Pre Proc Eval Procedure: Operation Date: 04/28/22 12:30 Proposed Procedures p Esophagogastroduodenoscopy & Colonoscopy - Jeremiah Hendrickson MD Date/Time: 04/28/22 11:32 Surgeon: Jeremiah Hendrickson MD Pre Op Diagnosis: LUQ pain, dyspepsia; IBS-C, Hx of colon polyps Patient Data Age: 42 Gender: F Height: 1.63 m Weight: 61 kg Last Vital Signs Temp 99.3 F 04/28/22 10:54 Pulse 78 04/28/22 10:54 Resp 16 04/28/22 10:54 BP 103/70 04/28/22 10:54 Pulse Ox 100 04/28/22 10:54 O2 Del Method Room Air 04/28/22 10:54 Allergies Allergy/AdvReac Type Severity Reaction Status Date / Time No Known Allergies Allergy Verified 04/28/22 10:52 Home Medications Medication Instructions Recorded Confirmed Type levonorgestrel 20 mcg/24 hours (8 1 device intrauterine ONCE 12/22/19 04/28/22 History yrs) 52 mg intrauterine device (Mirena) linaclotide 145 mcg capsule 145 mcg PO DAILY #90 caps 02/16/22 04/28/22 Rx (Linzess) omeprazole 20 mg capsule,delayed 20 mg PO DAILY #30 caps 02/16/22 04/28/22 Rx release polyethylene glycol 3350 17 gram 17 g PO DAILY PRN Constipation 04/14/22 04/28/22 History oral powder packet (Miralax) Patient hx anesthesia problems: none Family hx anesthesia problems: none Results Review: All pre-operative results and documents have been reviewed as part of the pre- operative evaluation. [facility] Past Medical History Medical History Alcoholism Anxiety and depression Asthma Bloating Hx of colonic polyps Hx of supraventricular tachycardia Indigestion Irritable bowel syndrome with constipation LLQ abdominal tenderness LUQ abdominal pain Umbilical pain Social History Social History Years smoked: 20 Smoking status: Former smoker Substance use type: does not use Living arrangements: with family Gender identity (if verbalized by the patient): Female Spiritual care concerns: No Anes - Eval Final PreProcedure Day of Procedure 04/28/22 11:32 Patient weight: normal Heart: regular rate and rhythm Lungs: clear to auscultation Airway: Mallampati scale class II Neurological: alert and oriented Last oral intake: >/= 8 hours ASA classification: III Emergent: no Anesthetic plan: proceed Anesthesia type and monitoring: general GIVS and standard monitoring Results Review: All pre-operative results and documents have been reviewed as part of the pre- operative evaluation. Informed Consent: The patient's anesthetic plan and its attendant risks and benefits were discussed with the patient/family/POA. Questions were solicited and answers provided to the satisfaction of the patient/family/POA.
--- NOTE | 2022-04-28 12:06 | PM.HPGS ---
History of Present Illness History of Present Illness Consent: Risks, benefits, and alternatives have been discussed and questions answered. Patient agrees to proceed with procedure. Chief complaint: LUQ pain, dyspepsia; IBS-C, Hx of colon polyps Narrative: Shavonne Orellana is a 42 year old female with intermittent luq pain, never had egd. Also history of ibs-c doing well on linzess but can not afford it. Last colonoscopy with polyp 6 years ago Review of Systems Constitutional: Constitutional: Denies headache(s) and Denies weakness Eyes: Eyes: Denies blurry vision ENT: Reports Normal hearing present, Denies headache(s) and Denies neck pain Cardiovascular: Cardiovascular: Denies chest pain and Denies dyspnea Respiratory: Respiratory: Denies dyspnea Gastrointestinal: Gastrointestinal: Reports no additional gastrointestinal complaints Genitourinary: Genitourinary: Denies dysuria Musculoskeletal: Musculoskeletal: Denies neck pain Integumentary/Breasts: Skin/Breast: Denies dry skin Neurologic: Reports Normal hearing present, Denies headache(s) and Denies weakness Psychiatric: Psychiatric: Denies anxiety Endocrine: Endocrine: Denies change in body appearance Hematologic/Lymphatic: Hematologic/Lymphatic: Denies easy bleeding Allergic/Immunologic: Allergic/Immunologic: Denies urticaria PMFSH Past Medical History Medical History Alcoholism Anxiety and depression Asthma Bloating Hx of colonic polyps Hx of supraventricular tachycardia Indigestion Irritable bowel syndrome with constipation LLQ abdominal tenderness LUQ abdominal pain Umbilical pain Social History Social History Years smoked: 20 Smoking status: Former smoker Substance use type: does not use Living arrangements: with family Gender identity (if verbalized by the patient): Female Spiritual care concerns: No Meds Home Medications and Allergies Home Medications Medication Instructions Recorded Confirmed Type levonorgestrel 20 mcg/24 hours (8 1 device intrauterine ONCE 12/22/19 04/28/22 History yrs) 52 mg intrauterine device (Mirena) linaclotide 145 mcg capsule 145 mcg PO DAILY #90 caps 02/16/22 04/28/22 Rx (Linzess) omeprazole 20 mg capsule,delayed 20 mg PO DAILY #30 caps 02/16/22 04/28/22 Rx release polyethylene glycol 3350 17 gram 17 g PO DAILY PRN Constipation 04/14/22 04/28/22 History oral powder packet (Miralax) Allergies Allergy/AdvReac Type Severity Reaction Status Date / Time No Known Allergies Allergy Verified 04/28/22 10:52 Vital Signs Vital Signs - 24 hr 04/28/22 10:54 Temperature 99.3 F Pulse Rate 78 Respiratory Rate 16 Blood Pressure 103/70 Pulse Oximetry 100 Oxygen Delivery Room Air Exam Const: General: comfortable and no acute distress HENMT: Face/Nose/Sinus: Normal nares present Eyes: General: appearance normal, both eyes and all related structures Neck: Neck: no JVD Resp: Auscultation: clear to auscultation bilaterally Cardio: Rate: regular rate Rhythm: regular rhythm GI: Inspection: non-distended GI Palp: Yes Soft to palpation Skin: General skin exam: normal color Neuro: General: gait normal Speech: normal speech Extrem: General: normal to inspection Psych: Mental Status: mental status grossly normal Assessment and Plan Assessment and plan (1) LUQ abdominal pain: Code(s): R10.12 - Left upper quadrant pain Status: Acute Assessment and Plan: egd with bx (2) Hx of colonic polyps: Code(s): Z86.010 - Personal history of colonic polyps Status: Acute Assessment and Plan: colonoscopy (3) Irritable bowel syndrome with constipation: Code(s): K58.1 - Irritable bowel syndrome with constipation Status: Acute
--- NOTE | 2022-04-28 12:20 | SUR.OPER ---
EGD: [id number] COLON: [id number]
[2022-04-28 12:34] VITALS: BP 115/86; PULSE 91; RESP 24; O2SAT 100
[2022-04-28 12:44] VITALS: BP 102/66; PULSE 76; RESP 16; O2SAT 100
[2022-04-28 12:54] VITALS: PULSE 72; RESP 21; O2SAT 100
== END 2022-04-28 13:05 | disposition home or self-care (01) ==
PROVIDERS: Visit Provider Internal Medicine Gastroenterology
PROC: 0DJ08ZZ Inspection of Upper Intestinal Tract, Via Natural or Artificial Opening Endoscopic (ICD-10-PCS; CPT 43235; principal; 2022-04-28 12:30)
DX: K58.1 Irritable bowel syndrome with constipation (principal); K63.5 Polyp of colon; K64.8 Other hemorrhoids; K44.9 Diaphragmatic hernia without obstruction or gangrene; Z87.891 Personal history of nicotine dependence
CPT/HCPCS: 45385; 43239; 88305; J2704; J7120

== ENCOUNTER 2022-08-28 11:42 | Outpatient (CLI) | payer OTHER, SELFPAY ==
--- NOTE | ~2022-08-28 | MMUS_ITS ---
EXAMINATION: MM diagnostic shruthi LT w karen, US breast LT limited HISTORY: Left 8:00 breast mass 3 cm from nipple; 6 month follow-up TECHNIQUE: ML, MLO and CC 3-D tomosynthesis images of the left breast were performed and synthetic 2- D images were generated. CAD analysis was submitted and interpreted. High resolution targeted 8:00 le ft breast ultrasound was performed. COMPARISON: 02/13/2022 diagnostic mammogram and limited left breast ultrasound BREAST PARENCHYMAL COMPOSITION: The breasts are heterogeneously dense, which may obscure small masses . FINDINGS: MAMMOGRAPHIC FINDINGS: Biopsy marker on the left; history of prior benign left breast biopsy. No suspicious mass, architectural distortion, malignant calcification, skin thickening or retraction or significant new or developing mammographic density of the left breast is detected. ULTRASOUND: At 8:00 3 cm from the nipple there is an irregular hypoechoic shadowing lesion measuring up to 5 mm d imension. The irregular margins and shadowing are of concern for possible malignancy. Ultrasound-guid ed biopsy is recommended. IMPRESSION: 1. Irregular hypoechoic shadowing 5 mm mass left breast 8:00 3 cm from nipple 2. Ultrasound-guided biopsy of left breast 8:00 lesion is recommended BI-RADS category 4, suspicious findings. Dr. Farrell telephoned the report and ultrasound-guided biopsy recommendation of left breast 8:00 lesion on 08/20/2022 at 1335 hours to Clementina. Reviewed, dictated and finalized at location A. IMPRESSION: 1. Irregular hypoechoic shadowing 5 mm mass left breast 8:00 3 cm from nipple 2. Ultrasound-guided biopsy of left breast 8:00 lesion is recommended BI-RADS category 4, suspicious findings. Dr. Farrell telephoned the report and ultrasound-guided biopsy recommendation of l eft breast 8:00 lesion on 08/20/2022 at 1335 hours to Clementina.
== END 2022-08-28 11:43 | disposition home or self-care (01) ==
LOC: ANHIMG 11:43
PROVIDERS: Visit Provider Obstetrics & Gynecology
DX: N63.20 Unspecified lump in the left breast, unspecified quadrant (principal)
CPT/HCPCS: 76642; 77061; 77065; G0279

== ENCOUNTER 2022-11-25 10:08 | Outpatient (CLI) | payer OTHER, SELFPAY ==
--- NOTE | 2022-11-30 12:44 | WPDPFTINT ---
PFT Procedure Performed PFT Procedure Performed Plethysmography (Lung Vol) Diffusing Cap (DLCO) Flow Vol Loop Spirometry w/o Bronchodil PFT Interpretation DOS:11/25/2022 REQUESTING: LAXMI Wing REASON FOR TESTING: asthma, shortness of breath PULMONARY FUNCTION TESTS Results are not completely reliable and reproducible. The repeat ability of the FEV1 spirometry maneuver was Grade B. All testing was completed with optimal patient effort and cooperation. Spirometry: FEV1 is 2.65 L, 87% predicted, normal. FVC is 3.42 L, 91% predicted, normal. The FEV1/FVC ratio is 78%, normal. No bronchodilator was administered. Lung volumes: Total lung capacity is 4.91 L, 94% predicted, normal. Residual volume is 1.49 L, 89% predicted, normal. RV / TLC is 30%, normal. Airway resistance is 3.24 cm water/ L/sec, 264%, elevated. Diffusion: DLCO is 18.4, 76%, within the normal range. DLCO / VA 4.27, 91%, normal range. Flow volume loop: Unremarkable IMPRESSION: This study shows normal spirometry without airflow obstruction, normal lung volumes and normal diffusion. Jolynn Prince MD
== END 2022-11-25 10:09 | disposition home or self-care (01) ==
DX: J45.909 Unspecified asthma, uncomplicated (principal); R06.02 Shortness of breath; Z86.16 Personal history of COVID-19
CPT/HCPCS: 94375; 94726; 94729

== ENCOUNTER 2023-02-28 18:30 | Emergency (ER) | payer OTHER, SELFPAY ==
--- NOTE | ~2023-02-28 | XR_ITS ---
EXAM: XR elbow LT min 3V DATE: 02/28/2023 18:48 HISTORY: fall . COMPARISON: None available. FINDINGS: Normal mineralization. No fracture or dislocation. No lytic or blastic lesion. Joint space s are maintained. No erosion or periosteal change. Soft tissues within normal limits. IMPRESSION: No acute osseous finding the left elbow. Reviewed, dictated and finalized at location K.
[2023-02-28 18:48] VITALS: BP 116/65; PULSE 68; RESP 16; TEMP 36.9; O2SAT 100
--- NOTE | 2023-02-28 19:00 | ED.UPPEXIN ---
HPI - Extremity Injury (Upper) General Chief Complaint: Extremity Injury, Upper Stated Complaint: left elbow injury, fell Time Seen by Provider: 02/28/23 18:49 Source: patient and RN notes reviewed Mode of arrival: ambulatory Limitations: no limitations History of Present Illness HPI narrative: Patient presents today complaining of a left elbow injury. She slipped and fell outside approximately 1 hour prior to arrival. Currently rates her pain 8/10, which increases with flexion and extension of the elbow. She applied some topical lidocaine prior to arrival, which did provide a little bit of relief. Denies numbness or tingling in the arm or hand, but does report radiation of the pain from her elbow to the forearm. She is up-to-date on her tetanus vaccine. Related Data Home Medications Medication Instructions Recorded Confirmed levonorgestrel 21 mcg/24 hours (8 1 device intrauterine ONCE 12/22/19 10/12/22 yrs) 52 mg intrauterine device (Mirena) alprazolam 0.5 mg tablet (Xanax) 0.5 mg PO QHS PRN 10/12/22 10/12/22 famotidine 20 mg tablet 20 mg PO .prn 10/12/22 10/12/22 albuterol sulfate 90 mcg/actuation inhalation PRN Wheezing 02/28/23 aerosol inhaler fluticasone propionate 44 inhalation PRN ASTHMA 02/28/23 mcg/actuation HFA aerosol inhaler (Flovent HFA) montelukast 10 mg tablet 10 mg PO DAILY 02/28/23 02/28/23 Allergies Allergy/AdvReac Type Severity Reaction Status Date / Time No Known Allergies Allergy Verified 02/28/23 18:34 Review of Systems Review of Systems: CONSTITUTIONAL: Denies body aches, fever, chills, or sweats. EYES: Denies visual changes, redness, or discharge. ENT: Denies rhinorrhea, congestion, sore throat, or otalgia. CARDIOVASCULAR: Denies chest pain, palpitations, or edema. RESPIRATORY: Denies cough or dyspnea. GASTROINTESTINAL: Denies abdominal pain, nausea, vomiting, or diarrhea. GENITOURINARY: Denies dysuria or hematuria. SKIN: Denies rash, itching, or wounds. MUSCULOSKELETAL: Denies back pain, or myalgia.+ left elbow pain NEUROLOGIC: Denies headache, numbness, tingling, or weakness. PSYCH: Denies depression or anxiety. [facility] Past Medical History Medical History Alcoholism Anxiety and depression Asthma Bloating Hx of colonic polyps Hx of colonic polyps Hx of supraventricular tachycardia Indigestion Internal hemorrhoids Irritable bowel syndrome with constipation LLQ abdominal tenderness LUQ abdominal pain Umbilical pain Social History Social History Years smoked: 20 Smoking status: Former smoker Substance use type: does not use Living arrangements: with family Gender identity (if verbalized by the patient): Female Spiritual care concerns: No Comments At time of signature, I have reviewed and agree with nursing past medical, surgical, social and family history unless otherwise noted. Please see nursing chart for further information. There is no relevant family history pertinent to the presenting complaint Exam Narrative: GENERAL: Well-appearing, well-nourished, and in no acute distress. HEAD: Normocephalic, atraumatic. EYES: EOMI. No redness or drainage. Conjunctivae normal. ENT: Mucous membranes pink and moist. NECK: Normal AROM. CHEST: No respiratory distress. EXTREMITIES: Left elbow: A few superficial abrasions to the olecranon process with tenderness to this area as well. No edema. No tenderness to the lateral or medial epicondyles. Pain with flexion and extension. No pain with pronation or supination. Distal sensation intact. Capillary refill normal. Radial pulse normal normal. SKIN: Warm, dry, no rash. Capillary refill normal. Normal skin turgor. NEURO: No focal deficits. Alert and oriented x3. Gait steady. PSYCH: Normal affect. No signs of depression or anxiety. Course Course Level of Care: Expr
== END 2023-02-28 19:40 | disposition home or self-care (01) ==
PROVIDERS: Emergency Provider Nurse Practitioner
DX: S50.02XA Contusion of left elbow, initial encounter (principal); W19.XXXA Unspecified fall, initial encounter; S50.312A Abrasion of left elbow, initial encounter; J45.909 Unspecified asthma, uncomplicated; F41.9 Anxiety disorder, unspecified; Z87.891 Personal history of nicotine dependence
CPT/HCPCS: 73080; 99213; G0463

== ENCOUNTER 2023-03-19 16:54 | Emergency (ER) | payer OTHER, SELFPAY ==
[2023-03-19] VITALS (16 sets, daily range): BP systolic 101–108; BP diastolic 60–68; PULSE 54–77; RESP 12–21; TEMP 36.8; O2SAT 99–100
--- NOTE | ~2023-03-19 | XR_ITS ---
EXAMINATION: XR chest 2V DATE: 03/19/2023 20:57 INDICATION: New onset chest pain. Asthma. TECHNIQUE: PA and lateral views of the chest were obtained. COMPARISON: Chest radiograph dated 03/22/2022 FINDINGS: The lungs remain clear with no focal airspace opacities, pulmonary edema, pleural effusion or pneumot horax. The cardiomediastinal silhouette is normal. Mild thoracic spondylosis. IMPRESSION: 1. No acute cardiopulmonary disease. Reviewed, dictated and finalized at location A. NDS WORKER
--- NOTE | ~2023-03-19 | XR_ITS ---
EXAMINATION: XR shoulder LT min 2V DATE: 03/19/2023 20:57 INDICATION: Left shoulder pain TECHNIQUE: AP internally and externally rotated, AP oblique externally rotated and transscapular Y vi ews of the left shoulder were obtained. COMPARISON: None FINDINGS: Normal alignment. No fracture. Glenohumeral joint is normal. Acromioclavicular joint is normal. Soft tissues are unremarkable. Visualized portions of the lungs are clear. IMPRESSION: Negative left shoulder radiographs. Reviewed, dictated and finalized at location A. ATIENT THERAPIST
--- NOTE | 2023-03-19 17:13 | ECG_ITS ---
Measurements Intervals [place] Rate: 80 P: 17 [place]: 75 QRS: 39 QRSD: 77 T: 60 QT: 399 QTc: 463 Interpretive Statements SINUS RHYTHM WITH SHORT [place] INTERVAL BASELINE ARTIFACT- I, II, AVR, AVL BORDERLINE ECG COMPARED TO ECG 03/22/2022 13:09:18 NO SIGNIFICANT CHANGES Electronically Signed On 03-19-2023 21:36:08 OPERATIONS ADMINISTRATIVE ASSISTANT by Balwinder Islas D.O.
--- NOTE | 2023-03-19 20:43 | ED.CHESTPAIN ---
HPI - Chest Pain General Chief Complaint: Chest Pain Stated Complaint: chest pain, dyspnea, hot/cold Time Seen by Provider: 03/19/23 20:08 History of Present Illness HPI narrative: 43 y/o F with history of anxiety reports for evaluation for chest pain in left shoulder pain. Patient states she has chronic chest pain that occurs intermittently. She states she has developed left shoulder pain which occurs in conjunction with chest pain over the past 3-4 weeks. She states the shoulder pain starts in the proximal clavicle and if she presses on the proximal clavicle it hurts through her shoulder into her scapula. She states today it all she was driving a school bus for work, she began developing chest pain and tightness, left shoulder pain, dizziness and lightheadedness, diaphoresis and brain fog. She states she took a Xanax which normally helps her symptoms but did not help. She denies recent injury or trauma to her shoulder but does state approximately 1 year ago, she injured it while opening a window and had problems for a few weeks after. Patient states her chest pain and shoulder pain at times improved with Xanax, belching, or fasting. She states she has noticed recently that her chest pain is worsened when she exercises. She does report a strong family medical history of cardiac disease and diabetes. Patient's PCP is at [place] and states she was referred to GI and Cardiology for her symptoms. She has been seen by GI but lost her referral to Cardiology and is not evaluated. She does endorse a history of SVT and tachy-dulce syndrome many years ago. She denies neck pain or back pain, shortness of breath, cough or congestion, fevers, nausea or vomiting, abdominal pain, syncope. Related Data Home Medications Medication Instructions Recorded Confirmed levonorgestrel 21 mcg/24 hours (8 1 device intrauterine ONCE 12/22/19 10/12/22 yrs) 52 mg intrauterine device (Mirena) alprazolam 0.5 mg tablet (Xanax) 0.5 mg PO QHS PRN 10/12/22 10/12/22 famotidine 20 mg tablet 20 mg PO .prn 10/12/22 10/12/22 albuterol sulfate 90 mcg/actuation inhalation PRN Wheezing 02/28/23 aerosol inhaler fluticasone propionate 44 inhalation PRN ASTHMA 02/28/23 mcg/actuation HFA aerosol inhaler (Flovent HFA) montelukast 10 mg tablet 10 mg PO DAILY 02/28/23 02/28/23 Allergies Allergy/AdvReac Type Severity Reaction Status Date / Time No Known Allergies Allergy Verified 03/19/23 20:46 Review of Systems Review of Systems: CONSTITUTIONAL: Denies fever, chills, or sweats. EYES: Denies visual changes, redness, or discharge. ENT: Denies rhinorrhea, congestion, sore throat, or otalgia. CARDIOVASCULAR: See HPI RESPIRATORY: Denies cough or dyspnea. GASTROINTESTINAL: Denies abdominal pain, nausea, vomiting, or diarrhea. GENITOURINARY: Denies dysuria or hematuria. SKIN: Denies rash or itching. MUSCULOSKELETAL: See HPI NEUROLOGIC: Denies headache, numbness, or weakness. PSYCHIATRIC: Denies anxiety or depression. [facility] Past Medical History Medical History Alcoholism Anxiety and depression Asthma Bloating Hx of colonic polyps Hx of colonic polyps Hx of supraventricular tachycardia Indigestion Internal hemorrhoids Irritable bowel syndrome with constipation LLQ abdominal tenderness LUQ abdominal pain Umbilical pain Social History Social History Years smoked: 20 Smoking status: Former smoker Substance use type: does not use Living arrangements: with family Gender identity (if verbalized by the patient): Female Spiritual care concerns: No Exam Narrative: GENERAL: Well-appearing, well-nourished, and in no acute distress. Pt resting comfortable in exam bed, she is pleasant and conversation. HEAD: Normocephalic, atraumatic. EYES: PERRLA and EOMI. ENT: Nares clear, no rhinorrhea or epistaxis. Mucous membranes m
[2023-03-19] MEDS: FAMOTIDINE 20 MG/2 ML VIAL IV PUSH (21:01)
[2023-03-19] MEDS: BELLADONNA ALK/PHENOB ELIX 10 ML, MAG HYDROX/ALUMINUM HYD/SIMETH 30 ML, LIDOCAINE HCL 2... PO (21:01)
[2023-03-19] MEDS: SODIUM CHLORIDE 0.9% IV 1,000 ML 999 ML IV CONT (21:12)
[2023-03-19 21:24] LABS: Basophils Absolute Auto 0.1 K/mm3 (0.0-0.1); Basophils Percent Auto 0.7 % (0.2-1.2); Eosinophils Absolute Auto 0.3 K/mm3 (0-0.3); Eosinophils Percent Auto 3.1 % (0-4.4); Hematocrit 41.4 % (37.0-47.0); Hemoglobin 13.4 g/dL (12.0-15.0); Immature Granulocyte Absolute 0.02 K/mm3 (0.00-0.031); Immature Granulocyte Percent A 0.2 % (0-0.5); Lymphocytes Absolute Auto 3.22 K/mm3 (0.9-3.2); Lymphocytes Percent Auto 37.3 % (18.3-44.2); Mean Corpuscular HGB Conc 32.4 g/dl (32-36); Mean Corpuscular Hemoglobin 30.9 pg (26-34); Mean Corpuscular Volume 95.4 fl (80-100); Mean Platelet Volume 10.7 fl (7.4-10.4); Monocytes Absolute Auto 0.5 K/mm3 (0.1-0.6); Monocytes Percent Auto 5.6 % (2.6-8.5); Neutrophils Absolute Auto 4.6 K/mm3 (1.3-6.7); Neutrophils Percent Auto 53.1 % (45.5-73.1); Platelet Count Result 281 k/mm3 (150-375); Red Blood Count 4.34 M/mm3 (4.2-5.4); Red Cell Distribution Width 12.2 % (11.5-14.5); White Blood Count 8.6 K/mm3 (4.5-10.0)
[2023-03-19 21:25] LABS: Appearance Urine Clear (Clear); Bilirubin Urine Negative (Negative); Blood Urine Negative (Negative); Color Urine Yellow (Yellow); Glucose Urine UA Negative (Negative); Ketones Urine 2+ mg/dL (Negative); Leukocyte Esterase Ur Negative LEU/UL (Negative); Nitrate Urine Negative (Negative); Protein Urine Negative (Negative); Specific Grav Ur 1.023 (1.001-1.035); Urobilinogen Urine 0.2 mg/dL (<2.0)
[2023-03-19 21:33] LABS: INR 1.1; Prothrombin Time 14.3 Seconds (11.1-14.7)
[2023-03-19 21:34] LABS: Partial Thromboplastin Time 31.6 SECONDS (22.3-36.8)
[2023-03-19 21:41] LABS: Alanine Aminotransferase 17 U/L (6-35); Albumin Level 4.6 g/dL (3.5-5.1); Alkaline Phosphatase 42 U/L (38-126); Anion Gap 8 mmol/L (8-16); Aspartate Amino Transferase 28 U/L (14-36); Bilirubin,Total 0.8 mg/dL (0.2-1.3); Blood Urea Nitrogen 8 mg/dL (7-17); Calcium 9.3 mg/dL (8.4-10.2); Carbon Dioxide 29 mmol/L (22-30); Chloride 103 mmol/L (98-107); Estimated CRCL calculation 80 ml/min; Estimated Glomerular Filt Rate > 60; Glucose 86 mg/dL (65-110); Lipase 88 U/L (23-300); Potassium 3.8 mmol/L (3.4-5.0); Sodium 140 mmol/L (137-145)
[2023-03-19 21:42] LABS: Add Urine Microscopic? NO
[2023-03-19 21:51] LABS: NT Pro B Type Natriuretic Pept 20 pg/mL (19.9-100); Troponin I < 0.012 ng/mL (0.000-0.034)
[2023-03-20] VITALS (8 sets, daily range): BP systolic 95–105; BP diastolic 57–72; PULSE 55–85; RESP 17–20; O2SAT 100
[2023-03-20 01:15] LABS: Troponin I < 0.012 ng/mL (0.000-0.034)
== END 2023-03-20 02:13 | disposition home or self-care (01) ==
PROVIDERS: Emergency Provider Physician Assistant
DX: R07.89 Other chest pain (principal); M25.512 Pain in left shoulder; Z87.891 Personal history of nicotine dependence
CPT/HCPCS: 36415; 71046; 73030; 80053; 81003; 81025; 83690; 83880; 84484; 85025; 85610; 85730; 93005; 96361; 96374; 99284; A9270; J7030

== ENCOUNTER 2023-06-11 16:44 | Emergency (ER) | payer OTHER, SELFPAY ==
--- NOTE | 2023-06-11 16:48 | ED.GENADULT ---
HPI - General Adult General Chief complaint: Ear Stated complaint: pressure in ears,neck,back Source: patient, RN notes reviewed and old records reviewed Mode of arrival: ambulatory Limitations: no limitations History of Present Illness HPI narrative: 43-year-old female presents to [facility] with complaint of bilateral ear pressure that started a couple weeks ago after having a virus. Patient states now having more pain and pain going down into neck. Patient taking [id number] medications with little relief. MD complaint: ear pain Onset (ago): month(s) Radiation: non-radiation Severity: moderate Related Data Home Medications Medication Instructions Recorded Confirmed levonorgestrel 21 mcg/24 hours (8 1 device intrauterine ONCE 12/22/19 10/12/22 yrs) 52 mg intrauterine device (Mirena) alprazolam 0.5 mg tablet (Xanax) 0.5 mg PO QHS PRN 10/12/22 10/12/22 famotidine 20 mg tablet 20 mg PO .prn 10/12/22 10/12/22 albuterol sulfate 90 mcg/actuation inhalation PRN Wheezing 02/28/23 aerosol inhaler fluticasone propionate 44 inhalation PRN ASTHMA 02/28/23 mcg/actuation HFA aerosol inhaler (Flovent HFA) montelukast 10 mg tablet 10 mg PO DAILY 02/28/23 02/28/23 Allergies Allergy/AdvReac Type Severity Reaction Status Date / Time No Known Allergies Allergy Verified 03/19/23 20:46 Review of Systems Constitutional: Constitutional: Reports no additional constitutional complaints, Denies body ache(s), Denies chills, Denies fatigue, Denies fever(s) and Denies headache(s) Eyes: Eyes: Reports no additional eye complaints and Denies blurry vision ENT: Reports system reviewed and no additional complaints, except as documented, Denies vertigo, Denies dizziness, Denies ear discharge, Reports otalgia, Denies facial pain, Denies headache(s), Denies nasal congestion, Denies nasal discharge, Denies sinus pain, Denies sinus pressure and Denies sore throat Cardiovascular: Cardiovascular: Reports no additional cardiovascular complaints, Denies chest pain, Denies chest pain at rest, Denies rapid heart rate and Denies dyspnea Respiratory: Respiratory: Reports no additional respiratory complaints, Denies chest congestion, Denies cough, Denies pain on inspiration, Denies pain with cough and Denies dyspnea Gastrointestinal: Gastrointestinal: Denies abdominal pain, Denies diarrhea, Denies nausea and Denies vomiting Musculoskeletal: Musculoskeletal: Reports neck pain Integumentary/Breasts: Skin/Breast: Denies rash Neurologic: Reports system reviewed and no additional complaints, except as documented, Denies vertigo, Denies dizziness and Denies headache(s) Endocrine: Endocrine: Denies fatigue PMFSH Past Medical History Medical History Alcoholism Anxiety and depression Asthma Bloating Hx of colonic polyps Hx of colonic polyps Hx of supraventricular tachycardia Indigestion Internal hemorrhoids Irritable bowel syndrome with constipation LLQ abdominal tenderness LUQ abdominal pain Umbilical pain Social History Social History Years smoked: 20 Smoking status: Former smoker Substance use type: does not use Living arrangements: with family Gender identity (if verbalized by the patient): Female Spiritual care concerns: No Comments At the time of my signature, I reviewed and agree with the nursing past medical, surgical, social, and family history. There is no relevant family history pertinent to the patient complaint. Exam Const: General: cooperative, healthy appearing, no acute distress and well nourished Nutritional Appearance: well nourished Orientation/consciousness: patient oriented x3 Limitations: no limitations HENMT: Head: normal to inspection and normocephalic Ears: external ears normal, mastoids normal, Abnormal EAC present and TM abnormal bulging, erythematous on the left, with flu
[2023-06-11 16:52] VITALS: BP 124/77; PULSE 80; RESP 16; TEMP 37.3; O2SAT 99
== END 2023-06-11 17:16 | disposition home or self-care (01) ==
PROVIDERS: Emergency Provider Registered Nurse
DX: H66.003 Acute suppurative otitis media without spontaneous rupture of ear drum, bilateral (principal); J45.909 Unspecified asthma, uncomplicated
CPT/HCPCS: 99213; G0463

== ENCOUNTER 2023-06-30 10:43 | Outpatient (CLI) | payer OTHER, SELFPAY ==
--- NOTE | ~2023-06-30 | XR_ITS ---
Right Hand Technique: PA, oblique, and lateral views were obtained. Clinical History: Third digit pain Findings: No acute fracture or dislocation is seen. Osseous alignment is anatomic. Joint spaces are p reserved. Soft tissues are unremarkable. Impression: Unremarkable right hand. Reviewed, dictated and finalized at location . LE BUSINESS INTELLIGENCE DEVELOPER Impression: Unremarkable right hand.
== END 2023-06-30 10:44 | disposition home or self-care (01) ==
LOC: ANHIMG 10:45
PROVIDERS: Visit Provider Nurse Practitioner Family
DX: M79.641 Pain in right hand (principal)
CPT/HCPCS: 73130

== ENCOUNTER 2023-12-26 14:19 | Emergency (ER) | payer OTHER, SELFPAY ==
[2023-12-26 15:16] LABS: EDUAAPPEAR Cloudy; EDUABILI Negative; EDUABLOOD Trace; EDUACOLOR1 Orange; EDUAGLUCOSE Trace; EDUAKETONE Negative; EDUALEUKO Negative; EDUANITRATE Positive; EDUAPH 8.5; EDUAPROTEIN Negative
[2023-12-26 15:17] VITALS: BP 123/69; PULSE 100; RESP 16; TEMP 37.2; O2SAT 99
== END 2023-12-26 15:56 | disposition home or self-care (01) ==
PROVIDERS: Emergency Provider Nurse Practitioner
DX: N39.0 Urinary tract infection, site not specified (principal); Z87.442 Personal history of urinary calculi
CPT/HCPCS: 81003; 87086; 87088; 99213; G0463

== ENCOUNTER 2024-04-29 18:02 | Emergency (ER) | payer OTHER, SELFPAY ==
--- NOTE | 2024-04-29 18:08 | ED_ITS ---
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 She reports that symptoms began approximately 1 week ago, have been worsening quite a bit. She reports chills and sweats, cough becoming incre asingly productive. Hoarse voice noted. She reports history of asthma, has had some episodes of wheezing but denies any shortness of breath. She has been using multiple [id number] medications as well as her albuterol inhaler with minimal results. She voices no other concerns or complaints today Related Data Home Medications ?Medication ?Instructions ?Recorded ?Confirmed ?Last Taken ?Type levonorgestrel (Mirena) 1 device intrauterine ONCE 12/22/19 04/29/24 06/27/21 History cetirizine 10 mg tablet 10 mg PO DAILY 12/26/23 12/26/23 Unknown History fluticasone propionate 50 1 spray intranasal DAILY 12/26/23 04/29/24 Unknown History mcg/actuation nasal spray,suspension hydroxyzine HCl 25 mg tablet 25 mg PO BID PRN Anxiety 12/26/23 04/29/24 Unknown History albuterol sulfate 90 mcg/actuation 2 inh inhalation QID PRN shortness 04/29/24 04/29/24 Unknown History aerosol inhaler of breath or wheezing montelukast 10 mg tablet 10 mg PO QPM 04/29/24 04/29/24 Unknown History Allergies Allergy/AdvReac Type Severity Reaction Status Date / Time No Known Allergies Allergy Verified 04/29/24 18:28 Review of Systems Review of Systems: All systems reviewed & are unremarkable except as noted in HPI and below Constitutional: Constitutional: Reports no additional constitutional complaints, Reports chills, Reports excessive sweating and Reports lethargy ENT: Reports system reviewed and no additional complaints, except as documented Cardiovascular: Cardiovascular: Reports no additional cardiovascular complaints Respiratory: Respiratory: Reports no additional respiratory complaints, Reports chest congestion, Reports excessive phlegm production and Reports wheezing Gastrointestinal: Gastrointestinal: Reports no additional gastrointestinal complaints PMFSH Past Medical History Medical History Alcoholism Anxiety and depression Asthma Bloating Hx of colonic polyps Hx of colonic polyps Hx of supraventricular tachycardia Indigestion Internal hemorrhoids Irritable bowel syndrome with constipation LLQ abdominal tenderness LUQ abdominal pain Umbilical pain Social History Social History Years smoked: 20 Smoking status: Former smoker Substance use type: does not use Living arrangements: with family Gender identity (if verbalized by the patient): Female Spiritual care concerns: No Comments At the time of my signature, I reviewed and agree with the nursing past medical, surgical, social, and family history. There is no relevant family history pertinent to the patient complaint. Exam Const: General: cooperative, no acute distress, alert and awake Orientation/consciousness: oriented to person, oriented to place and oriented to time HENMT: Head: normal to inspection Mouth: Yes moist mucous membranes Resp: Effort & Inspection: normal respiratory effort and able to speak in complete sentences Auscultation: clear to auscultation bilaterally, no crackles, no rales, no rhonchi, no wheezes and diminished lung sounds Cardio: Palpation: normal PMI Rate: regular rate Rhythm: regular rhythm Heart sounds: S1 normal heart sound present and S2 normal heart sound present Neuro: General: oriented to person, oriented to place and oriented to time Cranial nerves: Yes CN's II-XII intact bilaterally Psych: Appearance: grossly normal Thought process: Normal thought process present Insight: Good insight present (Psych) Judgement: Good judgement present (Psych) Course Course Level of Care: Express Care Visit Vital Signs Vital signs: Reviewed MDM - URI/Sore Throat MDM Narrative Medical decision making narrative: Patient with multiple sick contacts. Patient with asthma. History and physical consistent with atypical pneumonia that is prevalent within the community right now. Treat with Z-Juan A, prednisone burst, continue bronchodilators. Patient nontoxic appearing, no distress. Stable for discharge home on p.o. antibiotic therapy. Discharge instructions reviewed with patient, as well as provided in writing per nursing staff. The instructions also include specific and strict return/GO TO THE ER as well as f/u information. All questions have been answered, and the patient deny any further questions with discharge and discharge plan. Some parts of this dictation were generated by voice recognition software and may contain typographical and/or grammatical inaccuracies. Differential Diagnosis Differential diagnosis: Likely upper respiratory infection, otitis media, sinusitis, viral infection, influenza and pharyngitis Medical Records Attestation: I reviewed the patient's medical records. Discharge Plan Discharge Clinical Impression: Atypical pneumonia Patient Disposition: Home, Self-Care Condition: Stable Instructions: Antibiotic Form, Community Acquired Pneumonia (ED) Additional Instructions: Take medications as prescribed. Follow with primary care provider. Emergency department for new or worse symptoms Patient Language: Faroese Prescriptions: New azithromycin 250 mg tablet See Rx Instructions .ROUTE .COMPLEX Qty: 6 0RF Rx Instructions: For 250 mg dose pack: take 500 mg today (day 1), then 250 mg for 4 days (days 2-5) prednisone 50 mg tablet 50 mg PO DAILY Qty: 5 0RF albuterol sulfate [Ventolin HFA] 90 mcg/actuation HFA aerosol inhaler 2 puff inhalation QID PRN (Reason: shortness of breath or wheezing) Qty: 8.5 0RF No Action Mirena 20 mcg/24 hours (5 yrs) 52 mg Intrauterine Device 1 device INTRAUTERINE ONCE cetirizine 10 mg tablet 10 mg PO DAILY hydroxyzine HCl 25 mg tablet 25 mg PO BID PRN (Reason: Anxiety) fluticasone propionate 50 mcg/actuation spray,suspension 1 spray INTRANASAL DAILY montelukast 10 mg tablet 10 mg PO QPM albuterol sulfate 90 mcg/actuation HFA aerosol inhaler 2 inh inhalation QID PRN (Reason: shortness of breath or wheezing) Follow-up/Referrals: Jamel,POLA Diaz [Primary Care Provider] - 2 Weeks Time of Disposition: 18:35
[2024-04-29 18:11] VITALS: BP 116/92; PULSE 84; RESP 16; TEMP 37.2; O2SAT 100
== END 2024-04-29 18:37 | disposition home or self-care (01) ==
PROVIDERS: Emergency Provider Nurse Practitioner Family; PCP Nurse Practitioner Family
DX: J18.9 Pneumonia, unspecified organism (principal); Z87.891 Personal history of nicotine dependence; J45.909 Unspecified asthma, uncomplicated; F41.9 Anxiety disorder, unspecified
CPT/HCPCS: 99213; G0463

== ENCOUNTER 2024-09-19 07:49 | Outpatient (CLI) | payer OTHER, SELFPAY ==
--- NOTE | ~2024-09-19 | CT_ITS ---
CT of the Abdomen and Pelvis: Indication: Umbilicus discomfort Technique: 2.5 mm axial scans were obtained through the abdomen and pelvis following intravenous adm inistration of 100 cc of Omnipaque 350. Dose reduction technique was used on this scan by utilizing a utomated exposure control and iterative reconstruction technique. The dose-length product (DLP) was 2 69.52 mGy-cm. Findings: Scans through the lung bases are unremarkable. The liver, spleen, pancreas, gallbladder, adrenals and kidneys are within normal limits. No evidence of aortic aneurysm. No lymphadenopathy. No bowel obstruction or bowel wall thickening. There is no evidence to suggest acute appendicitis. Images through the pelvis were performed. Urinary bladder unremarkable. No pelvic mass seen. IUD in p lace. No ascites evident. Impression: No significant abnormalities seen. Reviewed, dictated and finalized at location . Impression: No significant abnormalities seen.
--- OUTSIDE RECORDS SUMMARY | 2024-09-19 07:52 | XMS_ITS | Clinical Summary ---
Author Organization [facility] ReplySend Address [address] [address] Care Team Providers Care Canvas Cutter Machine Name Role Phone Mercedes Guzman Primary Care Pr ovider Source Comments [facility] ReplySend,non-owned Affiliates and Associated Physician Practices is amultiple site organization consisting of ambulatory clinics and hospital sitesin [place], [place] and [place]. This disclosure is being madepursuant to the Care Everywhere program and may not contain all information available regarding this patient. Last updated 18.[facility] ReplySend Allergies No known active allergies Medications * Be aware that medications may not be up to date on this document. Alwaysverify current medications with the patient. VENTOLIN HFA 108 (90 BASE) MCG/ACT inhaler Inhale 2 puffs by mouth as needed 0 9 Active ALPRAZolam (XANAX) 0.5 MG tablet Take 0.5 mg by mouth as needed 0 9 Active ampicillin (PRINCIPEN) 500 MG capsule Take 500 mg by mouth 2 times daily 5 9 Active fluticasone propionate (FLONASE) 50 MCG/ACT nasal spray Mission 1 spray into each nostril as needed 3 9 Active hydroquinone (LUSTRA; ELDOQUIN) 4 % cream Apply 1 drop to affected area once daily 1 9 Active ibuprofen (MOTRIN) 600 MG tablet Take 600 mg by mouth as needed 0 9 Active spironolactone (ALDACTONE) 100 MG tablet Take 100 mg by mouth once daily 2 9 Active SUMAtriptan (IMITREX) 100 MG tablet Take 100 mg by mouth as needed 6 Active levonorgestrel (MIRENA) 20 MCG/24HR IUD 1 device by Intrauterine route as directed Active triamcinolone acetonide (KENALOG) 0.1 % creamIndication s:Other allergic contact dermatitis Apply to itchy rash twice daily. Do not use on face. 30 days supply. 60 g 11 9 Active Active Problems Problem Noted Date Diagnosed Date Other allergic contact dermatitis 07/21/2018 Acne vulgaris 07/21/2018 Family History Medical History Relation Name Comments Asthma Neg Hx CVA Neg Hx Cancer - Breast Neg Hx Cancer - Other Neg Hx Cancer - Skin, Melanoma Neg Hx Cancer - Skin, Non Melanoma Neg Hx Eczema Neg Hx Hemophilia Neg Hx Psoriasis Neg Hx Social History Tobacco Use Types Packs/Day Years Used Date Smoking Tobacco: Former Cigarettes Q uit: 2014 Smokeless Tobacco: Never Alcohol Use Standard Drinks/Week Comments Yes 1 (1 standard drink = 0.6 oz pur e alcohol) Comments Unknown Sex and Gender Information Value Date Recorded Sex Assigned at Not on file Legal Sex Female 2:30 PM [employer] Gender Identity Not on file Sexual Orientation Not on file Plan of Treatment Health Maintenance Due Date Last Done Comments LIPID TESTING 1980 MAMMOGRAM 1980 PAP SMEAR 1980 HIV SCREENING 02/27/1995 HEPATITIS C SCREENING 02/23/1998 DTAP/TDAP/TD VACCINES (1 - Tdap) 02/27/1999 HEPATITIS B VACCINE (1 of 3 - 19+ 3-dose series) 02/27/1999 COVID-19 VACCINE ( - 2023-2 5 season) 2024 DEPRESSION SCREENING 05/03/2024 INFLUENZA VACCINE (Season Ended) 2025 ZOSTER VACCINE (1 of 2) 02/27/2030 HIB VACCINE Aged Out No longer eligi ble based on patient's age to complete this topic HPV VACCINE Aged Out No longer eligi ble based on patient's age to complete this topic MENINGOCOCCAL (Group B) VACC INE SHARED DECISION-MAKING Aged Out No longer eligibl e based on patient's age to complete this topic MENINGOCOCCAL GROUPS A/C/Y/W VACCINE Aged Out No longer eligible b ased on patient's age to complete this topic PNEUMOCOCCAL VACCINE Aged Out No long er eligible based on patient's age to complete this topic Insurance [facility] Care Teams Canvas Cutter Machine Relationship Specialty Start Date End Date Mercedes Guzman PA [address] [place] [address] PCP - General 05/16/18
--- OUTSIDE RECORDS SUMMARY | 2024-09-19 07:52 | XMS_ITS | Clinical Summary ---
Author Organization [facility] Care Team Providers Care Sandwich And Drink Cart Operator Name Role Phone Unavailable Primary Care Provider Unavailabl e Social History Tobacco Use Types Packs/Day Years Used Date Smoking Tobacco: Never Assessed Comments Unknown Sex and Gender Information Value Date Recorded Sex Assigned at Not on file Legal Sex Female 11:24 AM CDT Gender Identity Not on file Sexual Orientation Not on file Plan of Treatment Health Maintenance Due Date Last Done Comments Hepatitis C Virus (HCV) Screening 1980 TdaP Immunization 1980 Hepatitis B Immunization (1 of 3 - 19+ 3-dose series) 02/27/1999 Pap Smear 02/27/2001 Cervical Cancer Screening (CCS) 02/27/2010 HPV/Cotest 02/27/2010 Discussion re Starting/Frequ ency of Mammograms 2020 Influenza Immunization (#1) 2024 SARS-COV-2 Immunization ( season) 2024 Respiratory Syncytial Virus (RSV) Immunization (Adult) (1 - 1-dose 75+ series) 02/27/2055 Meningococcal Immunization (ACWY) Aged Out No longer eligible based on patient's age to complete this topic Pneumococcal Immunization Combined Aged Out No longer eligible based on patient's age to complete this topic Rotavirus Immunization Aged Out No lo nger eligible based on patient's age to complete this topic
--- OUTSIDE RECORDS SUMMARY | 2024-09-19 07:52 | XMS_ITS | Clinical Summary ---
Author Organization [facility] Address [facility] [place] [address] Care Team Providers Care Customer Operations Specialist Name Role Phone None, Provider MD Primary Care Provider Unavaila ble Allergies No known active allergies Social History Tobacco Use Types Packs/Day Years Used Date Smoking Tobacco: Every Day Smokeless Tobacco: Never Alcohol Use Standard Drinks/Week Comments Not Currently 0 (1 standard drink = 0.6 oz pur e alcohol) Hx of alcohol abuse AUDIT-C Answer Date Recorded Frequency of Alcohol Consumption Never 11/02/2019 Average Number of Drinks Not on file 020 Frequency of Binge Drinking Not on file 06/2019 Comments Unknown Sex and Gender Information Value Date Recorded Sex Assigned at Not on file Legal Sex Female 5:33 PM CDT Gender Identity Not on file Sexual Orientation Not on file Last Filed Vital Signs Vital Sign Reading Time Taken Comments Blood Pressure 96/52 11/02/2019 2:30 PM CDT Pulse 57 11/02/2019 2:30 PM CDT Temperature 37.6 C (99.7 F) 11/02/2019 10:47 AM CDT Respiratory Rate 18 11/02/2019 2:30 PM CDT Oxygen Saturation 98% 11/02/2019 2:30 PM CDT Inhaled Oxygen Concentration - - Weight 57.2 kg (126 lb) 11/02/2019 10:40 AM CDT Height 162.6 cm (5' 4 ) 11/02/2019 10:40 AM CDT Body Mass Index 21.63 11/02/2019 10:40 AM CDT Plan of Treatment Health Maintenance Due Date Last Done Comments Cervical Cancer Screening Pa p Smear (Age 30 to 64) Every 3 Years 1980 Annual Physical 02/27/1983 Hepatitis C 02/27/1998 DTaP, Tdap and Td Vaccines ( 1 - Tdap) 02/27/1999 Hepatitis B Vaccines (1 of 3 - 19+ 3-dose series) 02/27/1999 Pneumococcal Vaccine: Pediat rics (0 to 5 Years) and At-Risk Patients (6 to 49 Years) (1 of 2 - PCV) 02/27/1999 Cervical Cancer Screening Pa p with HPV Testing (Age 30 to 64) Every 5 Years 02/27/2010 Cervical Cancer Screening with HPV 02/27/2010 Mammogram Screening 2020 COVID-19 Vaccine (1 - 2023-2 5 season) 2024 HPV Vaccines Aged Out No longer eligi ble based on patient's age to complete this topic Meningococcal B Vaccine Aged Out No l onger eligible based on patient's age to complete this topic Meningococcal Vaccine Aged Out No yuan gaston eligible based on patient's age to complete this topic RSV Immunizations Under 20 Months Aged Out No longer eligible based on patient's age to complete this topic Insurance Care Teams Customer Operations Specialist Relationship Specialty Start Date End Date None, Provider, PCP - General 11/02/19
--- OUTSIDE RECORDS SUMMARY | 2024-09-19 07:52 | XMS_ITS | Referral Summary ---
Author Organization [facility] Address [address] [place] [address] Care Team Providers Care Weight Shifter Name Role Phone Kemi Mcelroy NP Primary Care Provider Erickson Olivares MD Unavailable [phone] Allergies Active Allergy Reactions Criticality Noted Date Comments Prednisone Unknown 07/26/2012 Medications hydroquinone 4 % cream hydroquinone 4 % topical cream 019 Active methylPREDNISolon e (MEDROL DOSEPACK) 4 mg Dosepack methylprednisolone 4 mg tablets in a dose pack TK UTD Active omeprazole (PriLOSEC) 20 mg capsule omeprazole 20 mg capsule,delayed release 017 Active triamcinolone (KENALOG) 0.1 % cream triamcinolone acetonide 0.1 % topical cream APPLY TO ITCHY RASH BID. DO NOT USE ON FACE 019 Active albuterol HFA (Ventolin HFA) 90 mcg/actuation inhaler Ventolin HFA 90 mcg/actuation aerosol inhaler INL 2 PFS PO Q 6 TO 8 H PRN 017 Active ALPRAZolam (XANAX) 0.5 mg tablet TK 1 T PO TID PRA 020 Active azithromycin (ZITHROMAX) 250 mg tablet azithromycin 250 mg tablet Active cetirizine (ZyrTEC) 10 mg tablet cetirizine 10 mg tablet Active cyclobenzaprine (FLEXERIL) 10 mg tablet Take 1 tablet (10 mg total) by mouth 3 (three) times a day as needed Active dexmethylphenidat e XR (FOCALIN XR) 10 mg 24 hr capsule dexmethylphenidate ER 10 mg capsule,extended release [id number] TK 1 C PO QAM Active erythromycin-cailin oyl peroxide (BENZAMYCIN) gel erythromycin-benzoyl peroxide 3 %-5 % topical gel Active famotidine (PEPCID) 20 mg tablet famotidine 20 mg tablet TK 1 T PO D Active fluconazole (DIFLUCAN) 150 mg tablet fluconazole 150 mg tablet Active fluticasone propionate (FLONASE) 50 mcg/actuation nasal spray fluticasone propionate 50 mcg/actuation nasal spray,suspension SHAKE LQ AND U 2 SPRAYS IEN D 019 Active ibuprofen (ADVIL,MOTRIN) 600 mg tablet ibuprofen 600 mg tablet TK 1 T PO Q 6 H WF PRF PAIN Active ketoconazole (NIZORAL) 2 % cream ketoconazole 2 % topical cream SANDRA EXT AA D Active levonorgestreL (MIRENA) IUD 1 each by intrauterine route as directed Active Linzess 145 mcg capsule Active metroNIDAZOLE (FLAGYL) 500 mg tablet metronidazole 500 mg tablet TK 1 T PO Q 8 H Active naltrexone (DEPADE) 50 mg tablet TK 1 T PO Q DAY. START TAKING 1 WK B NEXT VIVITROL INJECTION 7 DAYS Active naltrexone microspheres (VivitroL) 380 mg suspension,extend ed rel recon Vivitrol 380 mg intramuscular suspension,extended release Active ondansetron ODT (ZOFRAN-ODT) 4 mg disintegrating tablet ondansetron 4 mg disintegrating tablet Act kimberly predniSONE (DELTASONE) 20 mg tablet prednisone 20 mg tablet Active predniSONE (DELTASONE) 50 mg tablet prednisone 50 mg tablet TK 1 T PO D Active sulfamethoxazole- trimethoprim (BACTRIM DS) 800-160 mg per tablet sulfamethoxazole 800 mg-trimethoprim 160 mg tablet TK 1 T PO Q 12 H Active SUMAtriptan (IMITREX) 100 mg tablet sumatriptan 100 mg tablet TK 1 T PO AOS OF MIGRAINE. MAY REPEAT IN 1 HOUR NEEDED. MAX 200 MG / 24 H Active terconazole (TERAZOL 3) 0.8 % vaginal cream terconazole 0.8 % vaginal cream APPLY DAILY DIRECTED FOR 3 DAYS Activ e tretinoin (ALTRALIN) 0.05 % gel tretinoin 0.05 % topical gel SANDRA SML AMT EXT AA QD HS PRN Active doxycycline (doxycycline hyclate) 100 mg capsule doxycycline hyclate 100 mg capsule TK 1 C PO BID Active linaCLOtide (LINZESS) 145 mcg capsule Take 1 capsule (145 mcg total) by mouth daily 6 capsule 020 Active Active Problems Problem Noted Date Diagnosed Date Abnormal mammogram 11/12/2020 Chronic idiopathic constipation 02/25/2020 Assessment & Plan (02/25/2020 10:07 AM CDT): Patient full GI evaluation, she needs new GI for insurance reasons. Will continue Linzess and try to help her with medications as possible. Follow up 3 months. Social History Tobacco Use Types Packs/Day Years Used Date Smoking Tobacco: Unknown Smokeless Tobacco: Never Tobacco Cessation:Counseling Given: Not Answered Alcohol Use Standard Drinks/Week Comments Not Currently 0 (1 standard drink = 0.6 oz pur e alcohol) Personal Safety Answer Date Recorded Getting School Help Needed Not on file 07/08 Comments Unknown Sex and Gender Information Value Date Recorded Sex Assigned at Not on file Legal Sex Female 3:00 PM CDT Gender Identity Not on file Sexual Orientation Not on file Last Filed Vital Signs Vital Sign Reading Time Taken Comments Blood Pressure 90/60 02/15/2020 10:09 AM CDT Pulse 60 02/15/2020 10:09 AM CDT Temperature 36.6 C (97.9 F) 02/15/2020 10:09 AM CDT Respiratory Rate 21 02/15/2020 10:09 AM CDT Oxygen Saturation 99% 02/15/2020 10:09 AM CDT Inhaled Oxygen Concentration - - Weight 58 kg (127 lb 13.9 oz) 09/23/2022 9:33 AM CDT Height 165.1 cm (5' 5 ) 09/23/2022 9:33 AM CDT Body Mass Index 21.28 09/23/2022 9:33 AM CDT Plan of Treatment Not on file Insurance [facility] Care Teams Weight Shifter Relationship Specialty Start Date End Date Kemi Mcelroy NP PCP - General Family Medicine 01/24/20 Erickson Olivares MD [address] [place] [address] Referring Physician Obstetrics and Gynecology 10/22/20
--- OUTSIDE RECORDS SUMMARY | 2024-09-19 07:52 | XMS_ITS | Clinical Summary ---
Author Organization [facility] Address [address] [place] [address] Care Team Providers Care Registrar [employer] Name Role Phone Unavailable Primary Care Provider Unavailabl e Allergies Active Allergy Reactions Criticality Noted Date Comments Prednisone Other (See Comments) 07/26/2012 Medications SUMAtriptan (IMITREX) 100 mg tabletIndicatio ns:Migraine with status migrainosus, not intractable, unspecified migraine type Take 1 Tablet (100 mg) by mouth see administration instructions may repeat in 2 hours; max dose 200mg in 24 hours. 9 Tablet 3 03/30/20 16 Active cyclobenzaprine (FLEXERIL) 10 mg tabletIndicatio ns:Migraine with status migrainosus, not intractable, unspecified migraine type Take 1 Tablet (10 mg) by mouth 3 times daily as needed for Spasm. 60 Tablet 03/30/20 16 Active spironolactone (ALDACTONE) 100 mg tablet TAKE 1 TABLET DAILY 90 Tablet 2 10/03/19 17 Active omeprazole (PriLOSEC) 20 mg Capsule, Delayed Release(E.C.) Take 1 Capsule (20 mg) by mouth daily In place of famotidine. 30 Capsule 5 10/06/19 17 Active ALPRAZolam (XANAX) 0.5 mg tablet TAKE 1 TABLET BY MOUTH TWICE DAILY NEEDED 60 Tablet 04/05/20 17 Active ampicillin (PRINCIPEN) 500 mg Capsule TAKE 1 CAPSULE BY MOUTH TWICE DAILY 60 Capsule 04/27/20 17 Active PROAIR HFA 90 mcg/actuation inhaler USE 2 INHALATIONS EVERY 6 HOURS NEEDED FOR SHORTNESS OF BREATH OR WHEEZING 8.5 Gram 4 04/27/20 17 Active atomoxetine (STRATTERA) 40 mg capsule TAKE 2 CAPSULES DAILY 180 Capsule 04/27/20 17 Active Active Problems Problem Noted Date Diagnosed Date Uncomplicated alcohol dependence 08/24/2016 Family history of rheumatoid arthritis 5 Sessile colonic polyp 03/28/2014 Overview (03/28/2014): Sessile poly rectum -- polypectomy 03/28/14 Vasovagal near syncope 03/06/2013 Attention deficit disorder 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 04/05/2012 Panic disorder without agoraphobia 04/05/2012 Unspecified constipation 04/05/2012 Immunizations Immunization Administration Dates Next Due INFLUENZA VACCINE QUADRIVALENT 3 YR UP PF IM Influenza Vaccine Split 3+ Yrs IM 03/06/2013 Family History Medical History Relation Name Comments COPD Father Heart Disease Father Hypertension Father heart attack Anxiety Mother Hypertension Mother heart attack Thyroid Disease Mother Stroke Sister Relation Name Status Comments Father Mother Sister Social History Tobacco Use Types Packs/Day Years Used Date Smoking Tobacco: Former Cigarettes 1 20 0 05/03/1992 - 05/03/2012 E-Cigarette/Mist Inhalation Device Smokeless Tobacco: Never Alcohol Use Standard Drinks/Week Comments Yes 0 (1 standard drink = 0.6 oz pur e alcohol) once a week Comments No Sex and Gender Information Value Date Recorded Sex Assigned at Not on file Legal Sex Female 7:33 PM [employer] Gender Identity Not on file Sexual Orientation Not on file Occupation Industry Job Start Date Job End Date Not on file Not on file Not on file Not on file Last Filed Vital Signs Vital Sign Reading Time Taken Comments Blood Pressure 104/68 09/23/2016 11:44 AM CDT Pulse 70 09/23/2016 11:44 AM CDT Temperature 37.2 C (98.9 F) 09/23/2016 11:36 AM CDT Respiratory Rate 16 09/23/2016 11:44 AM CDT Oxygen Saturation 98% 09/23/2016 11:44 AM CDT Inhaled Oxygen Concentration - - Weight 56.2 kg (124 lb) 09/23/2016 10:13 AM CDT Height 162.6 cm (5' 4 ) 09/23/2016 10:13 AM CDT Body Mass Index 21.28 09/23/2016 10:13 AM CDT Plan of Treatment Health Maintenance Due Date Last Done Comments DTAP/TDAP/TD VACCINES (1 - Tdap) 02/27/1999 HEPATITIS B VACCINES (1 of 3 - 19+ 3-dose series) 02/27/1999 HPV/Cotest (21-29) 02/27/2001 CERVICAL CANCER SCREENING 02/27/2010 HPV/Cotest (30-65) 02/27/2010 PAP SMEAR 02/27/2010 COLORECTAL SCREENING 03/28/2019 03/28/2014, 03/28/2014 BREAST CANCER SCREENING 2020 INFLUENZA VACCINE (#1) 2023 5, 03/06/2013 HPV VACCINES Aged Out No longer eligi ble based on patient's age to complete this topic Insurance BC[employer] BLUE ACCESS/TRUE BLUE PPO Advance Directives For more information, please contact: [phone] * Full Code (Latest Code Status on File) Date Activated Date Inactivated Comments 09/23/2016 10:04 AM 09/23/2016 3:06 PM * Full Code Date Activated Date Inactivated Comments 03/28/2014 7:19 AM 03/28/2014 11:06 AM * Full Code Date Activated Date Inactivated Comments 03/28/2014 7:16 AM 03/28/2014 7:19 AM
--- OUTSIDE RECORDS SUMMARY | 2024-09-19 07:52 | XMS_ITS | Clinical Summary ---
Author Organization [facility] Address [address] [place] [address] Care Team Providers Care President [employer] Name Role Phone Kemi Mcelroy NP Primary Care Provider Erickson Olivares MD Unavailable [phone] Allergies Active Allergy Reactions Criticality Noted Date [...] capsule dexmethylphenidate ER 10 mg capsule,extended release [id number] TK 1 C PO QAM Active erythromycin-cailin [...] medications as possible. Follow up 3 months. Surgical History Surgery Date Site/Laterality Comments HERNIA REPAIR 05/03/1992 - 05/02/1993 COLONOSCOPY 05/03/2016 - 05/02/2017 BREAST BIOPSY 11/18/2020 Left Social History Tobacco Use Types Packs/Day Years [...] on file Sexual Orientation Not on file Obstetrics History Last Filed Vital Signs Vital Sign Reading [...] 09/23/2022 9:33 AM CDT Plan of Treatment Health Maintenance Due Date Last Done Comments Breast Cancer Screening-Mammogram 1980 Cervical Cancer Screening 1980 Depression Screening 1980 Hepatitis C Screening 1980 Varicella Vaccines (1 of 2 - 13+ 2-dose series) 02/27/1993 Hepatitis B Screening 02/27/1998 Regular Well Visit/Exam 18-64 02/27/1998 Influenza Vaccine (#1) 2024 5, 03/06/2013 DTaP/Tdap/Td Vaccine (2 - Td or Tdap) 01/29/2031 01/29/2021 HPV Vaccines Aged Out No longer eligi ble based on patient's age to complete this topic Pneumococcal vaccine <65 Aged Out No longer eligible based on patient's age to complete this topic Insurance [facility] [place] [address] [facility] Care Teams President [employer] Relationship Specialty Start Date End Date Kemi Mcelroy NP PCP - General Family Medicine 01/24/20 Erickson Olivares MD [address] [address] Referring Physician Obstetrics and Gynecology 10/22/20
== END 2024-09-19 07:50 | disposition home or self-care (01) ==
PROVIDERS: PCP Nurse Practitioner Family; Visit Provider Nurse Practitioner
DX: K58.1 Irritable bowel syndrome with constipation (principal)
CPT/HCPCS: 74177; Q9967

== ENCOUNTER 2025-04-18 13:12 | Emergency (ER) | payer OTHER, SELFPAY ==
--- NOTE | 2025-04-18 13:34 | ED.DIZZY ---
HPI - Dizziness General Chief Complaint: Dizziness Stated Complaint: dizziness/loss of vision in left eye Time Seen by Provider: 04/18/25 13:15 Source: patient Mode of arrival: ambulatory Limitations: no limitations History of Present Illness HPI Narrative: Patient is a 45-year-old female who presents with dizziness and loss of vision in left eye that started at 12:15 p.m. Upon waking up. Patient does have history of ocular migraines but has only had 1 episode of losing vision. Patient states that was 15 years ago and was different than the presenting symptoms. Patient also reports these are different symptoms than her normal migraines. Patient denies any unilateral numbness, tingling or weakness. Patient did have fever of 101 when going to bed last night and has also had some URI symptoms. Patient reports sister started having mini strokes at this age. Related Data Home Medications ?Medication ?Instructions ?Recorded ?Confirmed ?Last Taken ?Type levonorgestrel (Mirena) 1 device intrauterine ONCE 12/22/19 02/15/25 06/27/21 History cetirizine 10 mg tablet 10 mg PO DAILY 12/26/23 02/15/25 Unknown History fluticasone propionate 50 1 spray intranasal DAILY 12/26/23 02/15/25 Unknown History mcg/actuation nasal spray,suspension hydroxyzine HCl 25 mg tablet 25 mg PO BID PRN Anxiety 12/26/23 02/15/25 Unknown History montelukast 10 mg tablet 10 mg PO QPM 04/29/24 02/15/25 Unknown History famotidine 40 mg tablet 40 mg PO DAILY 09/11/24 02/15/25 Unknown History atomoxetine 25 mg capsule mg PO 04/18/25 Unknown History sumatriptan succinate 50 mg tablet See Rx Instructions PO .COMPLEX 04/18/25 Unknown History (Imitrex) Allergies Allergy/AdvReac Type Severity Reaction Status Date / Time No Known Allergies Allergy Verified 04/18/25 13:35 Review of Systems Review of Systems: All systems reviewed & are unremarkable except as noted in HPI and below Constitutional: Constitutional: Denies body ache(s), Denies chills, Denies fatigue, Denies fever(s), Denies headache(s), Denies malaise and Denies weakness Eyes: Eyes: Denies blurry vision, Denies irritation and Denies loss of vision ENT: Denies otalgia, Denies headache(s), Denies nasal discharge, Denies sinus pain and Denies sore throat Cardiovascular: Cardiovascular: Denies chest pain, Denies irregular heart rhythm and Denies dyspnea Respiratory: Respiratory: Denies dyspnea Gastrointestinal: Gastrointestinal: Denies abdominal pain, Denies melena, Denies hematochezia, Denies diarrhea, Denies nausea and Denies vomiting Musculoskeletal: Musculoskeletal: Denies back pain, Denies myalgias and Denies arthralgias Integumentary/Breasts: Skin/Breast: Denies pruritus and Denies rash Neurologic: Reports dizziness, Denies headache(s), Reports loss of vision, Reports Other visual disturbances and Denies weakness Psychiatric: Psychiatric: Reports no additional psychiatric complaints Endocrine: Endocrine: Denies fatigue PMFSH Past Medical History Medical History Internal hemorrhoids Hx of colonic polyps Bloating LLQ abdominal tenderness Umbilical pain Indigestion LUQ abdominal pain Hx of colonic polyps Irritable bowel syndrome with constipation Alcoholism Anxiety and depression Asthma Hx of supraventricular tachycardia Social History Social History Years smoked: 20 Smoking status: Former smoker Substance use type: does not use Living arrangements: with family Gender identity (if verbalized by the patient): Female Spiritual care concerns: No Comments At time of signature, agree with nursing past medical, surgical, social and family history. There is no relevant family history pertinent to the presenting complaint. Exam Const: General: cooperative, healthy appearing, comfortable, no acute distress and well nourished Nutritional Appearance: well nourished Orientation/consciousness: patient oriented x3 Limitations: no limitations HENMT: Head: normal to inspection, normocephalic and atraumatic Ears: hearing grossly normal bilaterally and external ears normal Face/Nose/Sinus: Normal external nose present, normal facial exam and face symmetric Face and sinus: normal facial exam and face symmetric Mouth: Yes lip normal Eyes: General: appearance normal, both eyes and all related structures Alignment and Position: alignment normal and position normal Periorbital: periorbital findings normal Eyelids: eyelids normal Pupils: Equal, round and reactive pupils present EOM: EOMs intact bilaterally Neck: Neck: normal visual inspection, full ROM and supple Chest: Chest palpation & inspection: normal inspection of the chest Resp: Effort & Inspection: normal respiratory effort and able to speak in complete sentences Auscultation: clear to auscultation bilaterally Cardio: Rate: regular rate Rhythm: regular rhythm Heart sounds: S1 normal heart sound present and S2 normal heart sound present GI: Inspection: normal to inspection Skin: General skin exam: normal color and no rashes or lesions noted Neuro: General: patient oriented x3 and moves all extremities Cranial nerves: Yes Equal, round and reactive pupils present Cognition (Neuro): normal cognition Speech: normal speech Gait exam (Neuro): Normal gait present Motor exam (neuro): 5/5 motor strength present throughout, Normal motor muscle tone present throughout and Motor abnormalities not present Sensory Exam: normal sensation; No Sensory deficit (Neuro) Extrem: General: normal to inspection, full ROM and no edema Psych: Appearance: grossly normal and well kempt Mental Status: mental status grossly normal Speech and movement: Normal speech and movement present Affect: normal affect Attitude: cooperative Thought process: Normal thought process present Course Course Emergency Course: patient being transferred to [facility] for further workup and evaluation. Patient will need labs and imaging to rule out potential posterior stroke due to dizziness in unilateral vision changes. Portions of this record may have been created with voice recognition software Level of Care: Express Care Visit Vital Signs Vital signs: Vital Signs Temperature 37.2 C 04/18/25 13:36 Pulse Rate 86 04/18/25 13:36 Respiratory Rate 18 04/18/25 13:36 Blood Pressure 121/75 04/18/25 13:36 Pulse Oximetry 100 04/18/25 13:36 Oxygen Delivery Room Air 04/18/25 13:36 Temperature 37.2 C 04/18/25 13:36 Pulse Rate 86 04/18/25 13:36 Respiratory Rate 18 04/18/25 13:36 Blood Pressure 121/75 04/18/25 13:36 Pulse Oximetry 100 04/18/25 13:36 Oxygen Delivery Room Air 04/18/25 13:36 Transfer Transfered to: [facility] Transportation: Other ( private auto, patient refused EMS transfer) Transfer rationale: patient being transferred to [facility] for further workup and evaluation. Patient will need labs and imaging to rule out potential posterior stroke due to dizziness in unilateral vision changes. Accepting physician: Екатерина DUARTE [facility] MDM Narrative Medical decision making narrative: patient being transferred to [facility] for further workup and evaluation. Patient will need labs and imaging to rule out potential posterior stroke due to dizziness in unilateral vision changes. Patient offered and recommended EMS transferred due to severity of symptoms and time constraint. Patient adamantly refused even after risks were explained. Differential Diagnosis Differential Diagnosis: Differential diagnostic considerations for dizziness include dehydration, adverse reaction to drug, benign paroxysmal positional vertigo, orthostatic hypotension, vertebral basilar insufficiency, cerebrovascular accident, acute vestibular neuronitis, transient cerebral ischemia.?? Medical Records I have reviewed the following patient records and this information was taken into consideration when formulating the assessment and plan.: previous clinic visits Discharge Plan Discharge Clinical Impression: Dizziness, Loss of vision Patient Disposition: Acute Care Hospital Condition: Guarded Prognosis Patient Language: Luxembourgish Prescriptions: No Action Mirena 20 mcg/24 hours (5 yrs) 52 mg Intrauterine Device 1 device INTRAUTERINE ONCE cetirizine 10 mg tablet 10 mg PO DAILY hydroxyzine HCl 25 mg tablet 25 mg PO BID PRN (Reason: Anxiety) fluticasone propionate 50 mcg/actuation spray,suspension 1 spray INTRANASAL DAILY montelukast 10 mg tablet 10 mg PO QPM albuterol sulfate [Ventolin HFA] 90 mcg/actuation HFA aerosol inhaler 2 puff inhalation QID PRN (Reason: shortness of breath or wheezing) Qty: 8.5 0RF atomoxetine 25 mg capsule PO sumatriptan succinate [Imitrex] 50 mg tablet See Rx Instructions .ROUTE .COMPLEX Rx Instructions: take 1 tab at onset of headache; if no relief may repeat 1 tab after at least 2 hrs; max = 4 tabs/24 hr Trulance 3 mg tablet 3 mg PO DAILY Qty: 90 3RF famotidine 40 mg tablet 40 mg PO DAILY Follow-up/Referrals: Jamel,POLA Diaz [Primary Care Provider, Unknown]
[2025-04-18 13:36] VITALS: BP 121/75; PULSE 86; RESP 18; TEMP 37.2; O2SAT 100
== END 2025-04-18 13:41 | disposition short-term general hospital (02) ==
LOC: EXPCOLL 13:14
PROVIDERS: Emergency Provider Nurse Practitioner Family; PCP Nurse Practitioner Family
DX: R42 Dizziness and giddiness (principal); H54.62 Unqualified visual loss, left eye, normal vision right eye; J45.909 Unspecified asthma, uncomplicated; F41.9 Anxiety disorder, unspecified; Z87.891 Personal history of nicotine dependence
CPT/HCPCS: 99213; G0463

== ENCOUNTER 2025-04-18 14:04 | Emergency (ER) | payer OTHER, SELFPAY ==
[2025-04-18] VITALS (10 sets, daily range): BP systolic 104–131; BP diastolic 55–74; PULSE 76–88; RESP 16–20; TEMP 36.8; O2SAT 98–100
--- NOTE | ~2025-04-18 | CT_ITS ---
CT HEAD CTA NECK, CTA HEAD Clinical History: vision change Comparison: None TECHNIQUE: Unenhanced axial images skull base to vertex Coronal, sagittal reformats Helical images thoracic inlet to vertex IV contrast information not listed in PACS Coronal, sagittal reformats. Multi planar MIPS. CT images acquired with automatic exposure control for dose reduction DLP: 1477 mGy-cm Findings: CT HEAD Sulci, ventricles: Unremarkable. No intracerebral hemorrhage. No evidence acute territorial infarct. No mass effect, midline shift. Bony calvarium intact. Visualized paranasal sinuses: Left maxillary fluid. Mastoid air cells: Clear. No abnormal foci of contrast enhancement. Patent dural venous sinuses. CTA NECK NASCET Criteria utilized Aortic arch: No aneurysm or dissection. Great vessel origins: No stenosis. CCAs: No dissection. No stenosis. Cervical ICAs: No dissection. No stenosis. Vertebral Arteries: Patent. Lung Apices: Clear. Thyroid: Tiny nodules. Nodes: No enlarged nodes. Bones: No acute bony abnormality. CTA HEAD: Aneurysms: None. Intracranial ICAs: Patent, unremarkable. ACAs and their distal branches: Patent, unremarkable. A-Comm: Identified. Patent, unremarkable. MCAs and their distal branches: Patent, unremarkable. Basilar artery: Patent, unremarkable. locomotive lubricating systems clerk and their distal branches: Patent, unremarkable. P-Comms: Identified. IMPRESSION: CT HEAD: 1. No acute intracranial findings. CTA NECK: 1. No ICA stenosis or other acute arterial abnormality. CTA HEAD: 1. No large vessel arterial occlusive disease or other acute findings. 2. No aneurysms. Reviewed, dictated and finalized at location R. PMENT MECHANIC
--- NOTE | ~2025-04-18 | XR_ITS ---
EXAMINATION: XR chest 1V portable DATE: 04/18/2025 14:42 INDICATION: Stroke TECHNIQUE: A single frontal view of the chest was obtained. COMPARISON: March 192022 FINDINGS: The lungs are clear. Heart size normal. Bones appear intact. IMPRESSION: 1. No focal acute process. Reviewed, dictated and finalized at location A. INKER UPPERS IMPRESSION: 1. No focal acute process.
--- NOTE | 2025-04-18 14:10 | ECG_ITS ---
Test Date: 2025-04-18 14:32:01 Measurements Intervals [place] Rate: 71 P: 59 MS: 132 QRS: 52 QRSD: 86 T: 52 QT: 388 QTc: 424 Interpretive Statements SINUS RHYTHM POSSIBLE LEFT ATRIAL ENLARGEMENT POSSIBLE RIGHT VENTRICULAR CONDUCTION DELAY BASELINE ARTIFACT- V5-V6 BORDERLINE ECG No previous ECG available for comparison Electronically Signed On 04-18-2025 14:46:20 [employer]ANDY CUTTER MACHINE by Balwinder Islas D.O.
--- NOTE | 2025-04-18 14:21 | ED_ITS ---
HPI - General Adult General Chief complaint: Neuro Symptoms/Deficit Stated complaint: L eye vision loss 1 hour ago Time Seen by Provider: 04/18/25 14:10 History of Present Illness HPI narrative: 45-year-old female present to the emergency department for evaluation for acute visual changes. Patient states she was at home and had change in vision. Patient states she does have a history of ocular migraine but had loss of vision in both eyes for a short period of time. Patient states she is unsure she developed a headache afterwards because she always does have headaches. Patient did take her Imitrex afterwards. Patient initially presented to urgent care and then was referred to the emergency department for further evaluation. At time of initial evaluation patient states her vision has returned to baseline. Patient denies any other focal numbness or weakness. Patient is alert and appropriate. Related Data Home Medications ?Medication ?Instructions ?Recorded ?Confirmed ?Last Taken ?Type levonorgestrel (Mirena) 1 device intrauterine ONCE 0 12/22/19 02/15/25 06/27/21 History cetirizine 10 mg tablet 10 mg PO DAILY 12/26/2301/31 Unknown History fluticasone propionate 50 1 spray intranasal DAILY 02/15/25 Unknown History mcg/actuation nasal spray,suspension hydroxyzine HCl 25 mg tablet 25 mg PO BID PRN Anxiety 12/26/23 02/15/25 Unknown History montelukast 10 mg tablet 10 mg PO QPM 04/29/24 Unknown History famotidine 40 mg tablet 40 mg PO DAILY 09/11/2401/31 Unknown History atomoxetine 25 mg capsule mg PO 04/18/25 Unknown Hist ory sumatriptan succinate 50 mg tablet See Rx Instructions PO .COMPLEX 04/18/25 Unknown History (Imitrex) Allergies Allergy/AdvReac Type Severity Reaction Status Date / Time No Known Allergies Allergy Verified 04/18/25 13:35 Review of Systems 2 Review of Systems: All systems reviewed & are unremarkable except as noted in HPI and below PMFSH Past Medical History Medical History Internal hemorrhoids Hx of colonic polyps Bloating LLQ abdominal tenderness Umbilical pain Indigestion LUQ abdominal pain Hx of colonic polyps Irritable bowel syndrome with constipation Alcoholism Anxiety and depression Asthma Hx of supraventricular tachycardia Social History Social History Years smoked: 20 Smoking status: Former smoker Substance use type: does not use Living arrangements: with family Gender identity (if verbalized by the patient): Female Spiritual care concerns: No Exam 2 Narrative: APPEARANCE: Well appearing, no pain, no distress, well-nourished. HEAD: normocephalic, atraumatic. EYES: PERRLA/EOMI, conjunctivae clear. NOSE: Normal no drainage EARS:TMS clear with good light reflex. THROAT: Pharynx clear, no exudate. NECK: Supple. No adenopathy, no masses. RESPIRATORY: Airway patent, respirations nonlabored. Clear to auscultation bilaterally, no rales, rhonchi, wheezing. CARDIOVASCULAR: Regular rate and rhythm without murmurs rubs or gallops. ABDOMINAL: Soft, nontender, nondistended, normal bowel sounds MUSCULOSKELETAL: Moves all extremities. Strength/ROM intact, No edema, No calf tenderness. NEURO: Alert. Cranial nerves II through XII intact. Grossly intact. Visual chavez intact SKIN: Warm, dry. Normal Color Course Vital Signs Vital signs: Vital Signs Pulse Oximetry 100 04/18/25 14:05 Temperature 98.3 F 04/18/25 14:34 Pulse Rate 88 04/18/25 17:35 Respiratory Rate 16 04/18/25 17:35 Blood Pressure 106/55 L 04/18/25 17:35 Pulse Oximetry 100 04/18/25 17:35 Oxygen Delivery Room Air 04/18/25 14:34 [facility] Narrative Medical decision making narrative: 45-year-old female presents emergency department for evaluation for suspected ocular migraine. Patient states she was having burned out vision on her left visual field that lasted approximately 1 hour. A time of evaluation patient states her symptoms had resolved. Patient does have history of ocular migraines but has only had the migraines without the patient will feel changes for the last few years. Patient's neuro exam was normal with NIH of 0. Patient's CTA was negative. At time of evaluation patient was still at her baseline. Low concern for TIA versus CVA. Patient was educated on the results of workup and on reasons to return to the emergency department. All questions concerns were addressed. Patient was well-appearing at time of discharge. Differential Diagnosis Differential Diagnosis: TIA, CVA, migraine, complex migraine, ocular migraine, retinal detachment Lab Data MDM Lab Attestation statement: I personally reviewed the patient's lab results. 04/18/25 14:20 04/18/25 14:20 Labs: Lab Results 04/18/25 04/18/25 Range/Units 14:10 14:20 WBC 9.7 (4.5-10.0) K/mm3 RBC 4.38 (4.2-5.4) M/mm3 Hgb 13.6 (12.0-15.0) g/dL Hct 41.0 (37.0-47.0) % MCV 93.6 (80-100) fl MCH 31.1 (26-34) pg MCHC 33.2 (32-36) g/dl RDW 12.8 (11.5-14.5) % Plt Count 297 (150-375) k/mm3 MPV 10.7 H (7.4-10.4) fl Immature Gran % (Auto) 0.3 (0-0.5) % Neut % (Auto) 72.4 (45.5-73.1) % Lymph % (Auto) 17.0 L (18.3-44.2) % [place] % (Auto) 7.6 (2.6-8.5) % Eos % (Auto) 2.1 (0-4.4) % Baso % (Auto) 0.6 (0.2-1.2) % Lymph # (Auto) 1.65 (0.9-3.2) K/mm3 [place] # (Auto) 0.7 H (0.1-0.6) K/mm3 Eos # (Auto) 0.2 (0-0.3) K/mm3 Baso # (Auto) 0.1 (0.0-0.1) K/mm3 Abs Immat Gran (auto) 0.03 (0.00-0.031) K/mm3 Absolute Neuts (auto) 7.0 H (1.3-6.7) K/mm3 Absolute Nucleated RBC 0.000 (0.0-0.012) K/mm3 Nucleated RBC % 0.0 (0.0-0.2) % PT 13.4 (11.1-14.7) Seconds INR 1.0 APTT 30.4 (22.3-36.8) Seconds Sodium 139 (137-145) mmol/L Potassium 3.7 (3.4-5.0) mmol/L Chloride 104 (98-107) mmol/L Carbon Dioxide 29 (22-30) mmol/L Anion Gap 6 (4-12) mmol/L BUN 9 (7-17) mg/dL Creatinine 0.62 L (0.7-1.0) mg/dL Estim Creat Clear Calc Not Reportable Estimated GFR > 60 (59 - ) Glucose 92 (65-110) mg/dL POC Capillary Glucose 90 (65-105) mg/dl Calcium 9.7 (8.4-10.2) mg/dL Total Bilirubin 0.4 (0.2-1.3) mg/dL AST 24 (14-36) U/L ALT 11 (6-35) U/L Alkaline Phosphatase 55 (38-126) U/L Troponin I < 0.012 (0.000-0.034) ng/mL Total Protein 8.5 H (6.3-8.2) g/dL Albumin 4.6 (3.5-5.1) g/dL POC Urine HCG, Qual Negative (Negative) Imaging Data Radiologist's impression: ITS Impressions Head/Neck CTA 04/18/25 14:24 IMPRESSION: CT HEAD: 1. No acute intracranial findings. CTA NECK: 1. No ICA stenosis or other acute arterial abnormality. CTA HEAD: 1. No large vessel arterial occlusive disease or other acute findings. 2. No aneurysms. Chest X-Ray 04/18/25 14:46 IMPRESSION: 1. No focal acute process. 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 If you have any worsening symptoms then please call or return to the emergency department. Patient Language: Bhutanese Prescriptions: No Action Mirena 20 mcg/24 hours (5 yrs) 52 mg Intrauterine Device 1 device INTRAUTERINE ONCE cetirizine 10 mg tablet 10 mg PO DAILY hydroxyzine HCl 25 mg tablet 25 mg PO BID PRN (Reason: Anxiety) fluticasone propionate 50 mcg/actuation spray,suspension 1 spray INTRANASAL DAILY montelukast 10 mg tablet 10 mg PO QPM albuterol sulfate [Ventolin HFA] 90 mcg/actuation HFA aerosol inhaler 2 puff inhalation QID PRN (Reason: shortness of breath or wheezing) Qty: 8.5 0RF atomoxetine 25 mg capsule PO sumatriptan succinate [Imitrex] 50 mg tablet See Rx Instructions .ROUTE .COMPLEX Rx Instructions: take 1 tab at onset of headache; if no relief may repeat 1 tab after at least 2 hrs; max = 4 tabs/24 hr Trulance 3 mg tablet 3 mg PO DAILY Qty: 90 3RF famotidine 40 mg tablet 40 mg PO DAILY Follow-up/Referrals: Jamel,POLA Diaz [Primary Care Provider, Unknown] Quality Stroke Scale Stroke Scale 1: 1a Level of consciousness: alert-0 1b Level of consciousness questions: answers both correctly-0 1c Level of consciousness commands: obeys both correctly-0 2 Best gaze: normal-0 3 Visual: no visual loss-0 4 Facial palsy: normal-0 5a Motor: left arm: no drift-0 5b Motor: right arm: no drift-0 6a Motor: left leg: no drift-0 6b Motor: right leg: no drift-0 7 Limb ataxia: absent-0 8 Sensory: normal-0 9 Best language: no aphasia-0 10 Dysarthria: normal-0 11 Extinction and inattention: no abnormality-0 Level:: 0
[2025-04-18 14:30] LABS: Hematocrit 41.0 % (37.0-47.0); Hemoglobin 13.6 g/dL (12.0-15.0); Immature Granulocyte Percent A 0.3 % (0-0.5); Lymphocytes Absolute Auto 1.65 K/mm3 (0.9-3.2); Mean Corpuscular HGB Conc 33.2 g/dl (32-36); Mean Corpuscular Hemoglobin 31.1 pg (26-34); Mean Corpuscular Volume 93.6 fl (80-100); Nucleated Red Blood Cells Absolute Auto 0.000 K/mm3 (0.0-0.012); Nucleated Red Blood Cells Perc 0.0 % (0.0-0.2); Platelet Count Result 297 k/mm3 (150-375); Red Blood Count 4.38 M/mm3 (4.2-5.4); White Blood Count 9.7 K/mm3 (4.5-10.0)
[2025-04-18 14:36] LABS: INR 1.0; Prothrombin Time 13.4 Seconds (11.1-14.7)
[2025-04-18 14:37] LABS: Partial Thromboplastin Time 30.4 Seconds (22.3-36.8)
[2025-04-18 14:40] LABS: Alanine Aminotransferase 11 U/L (6-35); Albumin Level 4.6 g/dL (3.5-5.1); Alkaline Phosphatase 55 U/L (38-126); Anion Gap 6 mmol/L (4-12); Aspartate Amino Transferase 24 U/L (14-36); Bilirubin,Total 0.4 mg/dL (0.2-1.3); Blood Urea Nitrogen 9 mg/dL (7-17); Calcium 9.7 mg/dL (8.4-10.2); Carbon Dioxide 29 mmol/L (22-30); Chloride 104 mmol/L (98-107); Estimated Glomerular Filt Rate > 60; Glucose 92 mg/dL (65-110); Potassium 3.7 mmol/L (3.4-5.0); Sodium 139 mmol/L (137-145); Total Protein 8.5 g/dL (6.3-8.2)
[2025-04-18 14:51] LABS: Troponin I < 0.012 ng/mL (0.000-0.034)
[2025-04-18 15:01] LABS: BEDSIDEPREGUCG Negative (Negative)
--- OUTSIDE RECORDS SUMMARY | 2025-04-18 16:38 | XMS_ITS | Clinical Summary ---
Author Organization [facility] lin Address [address] [place] [address] Care Team Providers Care Disk Recordist Name Role Phone No, Pcp HORSE RACING MANAGER Primary Care Provider Unavailabl e Social History Tobacco Use Types Packs/Day Years Used Date Smoking Tobacco: Never Assessed Comments Unknown Sex and Gender Information Value Date Recorded Sex Assigned at Not on file Legal Sex Female 5:49 PM EDT Gender Identity Not on file Sexual Orientation Not on file Plan of Treatment Not on file Medical Devices Not on file Care Teams Disk Recordist Relationship Specialty Start Date End Date No, Pcp, HORSE RACING MANAGER N/A Do not use PCP - General Family Medicine 03/01/20
--- OUTSIDE RECORDS SUMMARY | 2025-04-18 16:39 | XMS_ITS | Clinical Summary ---
Author Organization [facility] [address] Address [address] [place] [address] Care Team Providers Care Information Systems Specialist Name Role Phone Kemi Mcelroy NP Primary Care Provider Erickson Olivares MD Unavailable [phone] Allergies Active Allergy Reactions Criticality Noted Date [...] capsule dexmethylphenidate ER 10 mg capsule,extended release [id number] TK 1 C PO QAM Active erythromycin-cailin [...] 9:33 AM CDT Height 165.1 cm (5' 5) 09/23/2022 9:33 AM CDT Body Mass Index 21.28 09/23/2022 9:33 AM CDT Plan of Treatment Health Maintenance Due Date Last Done Comments Breast Cancer Screening-Mammogram 1980 Cervical Cancer Screening 1980 Colon Cancer Screening-Colonoscopy 1980 Depression Screening 1980 Hepatitis C Screening 1980 Varicella Vaccines (1 of 2 - 13+ 2-dose series) 02/27/1993 Hepatitis B Screening 02/27/1998 Regular Well Visit/Exam 18-64 02/27/1998 Pneumococcal vaccine <65 (1 of 2 - PCV) 02/27/1999 HPV Vaccines (1 - 3-dose SCDM series) 02/27/2007 Influenza Vaccine (#1) 2025 03/21/2015, 2012 DTaP/Tdap/Td Vaccine (2 - Td or Tdap) 01/29/2031 Insurance [facility] Care Teams Information Systems Specialist Relationship Specialty Start Date End Date Kemi Mcelroy NP PCP - General Family Medicine 01/24/20 Erickson Olivares MD [address] [id number] Referring Physician Obstetrics and Gynecology 10/22/20
--- OUTSIDE RECORDS SUMMARY | 2025-04-18 16:39 | XMS_ITS | Clinical Summary ---
Author Organization [facility] Address [address] [place] [address] Care Team Providers Care Bead Filler Name Role Phone Mercedes Guzman Primary Care Pr ovider Source Comments [facility],non-owned Affiliates and Associated Physician Practices is amultiple site organization consisting of ambulatory clinics and hospital sitesin [place], [place], [place] and [place]. This disclosure is being madepursuant to the Care Everywhere program and may not contain all information available regarding this patient. Last updated 18.[facility] Allergies No known active allergies Medications * [...] fluticasone propionate (FLONASE) 50 MCG/ACT nasal spray Warden 1 spray into each nostril as needed [...] Years Used Date Smoking Tobacco: Former Cigarettes 0 Q uit: 2014 Smokeless Tobacco: Never Alcohol Use Standard Drinks/Week Comments Yes 1 (1 standard drink = 0.6 oz pur e alcohol) Comments Unknown Sex and Gender Information Value Date Recorded Sex Assigned at Not on file Legal Sex Female 2:30 PM PRECISION [employer]ER Gender Identity Not on file Sexual Orientation Not on file Plan of Treatment Health Maintenance Due Date Last Done Comments COLOGUARD (AGES 45-75) - COL ON CA SCREENING 1980 COLON MONITORING 1980 COLONOSCOPY - COLON CA SCREENING 1980 CT COLONOGRAPHY - COLON CA SCREENING 1980 Colorectal Cancer Screening 1980 FIT - COLON CA SCREENING 1980 FLEX SIG - COLON CA SCREENING 1980 LIPID TESTING 1980 MAMMOGRAM 1980 HIV SCREENING 02/27/1995 HEPATITIS C SCREENING 02/23/1998 DTAP/TDAP/TD VACCINES (1 - Tdap) 02/27/1999 HEPATITIS B VACCINE (1 of 3 - 19+ 3-dose series) 02/27/1999 PAP SMEAR 02/27/2001 HPV VACCINE (1 - 3-dose SCDM series) 02/27/2007 DEPRESSION SCREENING 05/03/2024 COVID-19 VACCINE (1 - 2024-2 6 season) 2025 INFLUENZA VACCINE (#1) 2025 ZOSTER VACCINE (1 of 2) 02/27/2030 [...] patient's age to complete this topic Insurance [facility] Care Teams Bead Filler Relationship Specialty Start Date End Date Mercedes Guzman PA [address] [place] [address] [place] [address] PCP - General 05/16/18
--- OUTSIDE RECORDS SUMMARY | 2025-04-18 16:39 | XMS_ITS | Clinical Summary ---
Author Organization [facility] Care Team Providers Care Relocation Coordinator Name Role Phone Unavailable Primary Care Provider [...] 19+ 3-dose series) 02/27/1999 Pap Smear 02/27/2001 Human Papillomavirus (HPV) Immunization (1 - 3-dose SCDM series) 02/27/2007 Cervical Cancer Screening (CCS) 02/27/2010 HPV/Cotest 02/27/2010 Influenza Immunization (#1) 2025 SARS-COV-2 Immunization ( season) 2025 Respiratory Syncytial Virus (RSV) Immunization (Adult) (1 [...]
--- OUTSIDE RECORDS SUMMARY | 2025-04-18 16:39 | XMS_ITS | Clinical Summary ---
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 Gender Identity Not on file Sexual Orientation [...] 10:13 AM CDT Height 162.6 cm (5' 4) 09/23/2016 10:13 AM CDT Body Mass Index 21.28 09/23/2016 10:13 AM CDT Plan of Treatment Health Maintenance Due Date Last Done Comments DTAP/TDAP/TD VACCINES (1 - Tdap) 02/27/1999 HEPATITIS B VACCINES (1 of 3 - 19+ 3-dose series) 02/27/1999 HPV/Cotest (21-29) 02/27/2001 CERVICAL CANCER SCREENING 02/27/2010 HPV/Cotest (30-65) 02/27/2010 PAP SMEAR 02/27/2010 COLORECTAL SCREENING 03/28/2019 03/28/2014, 03/28/20 14 Colorectal Cancer Screening 03/28/2019 BREAST CANCER SCREENING 2020 INFLUENZA VACCINE (#1) 2024 03/21/2015, 2012 FIT-DNA Q 3 years 02/27/2025 FIT/FOBT Q 1 year 02/27/2025 Flex Sig/CT Colonography Q 5 years 02/27/2025 HPV VACCINES (No Doses Required) Completed Insurance BS BLUE ACCESS/TRUE BLUE PPO Advance Directives For more information, please contact: [phone] * Full Code (Latest Code Status on File) Date Activated Date Inactivated Comments 09/23/2016 10:04 AM 09/23/2016 3:06 PM * Full Code Date Activated Date Inactivated Comments 03/28/2014 7:19 AM 03/28/2014 11:06 AM * Full Code Date Activated Date Inactivated Comments 03/28/2014 7:16 AM 03/28/2014 7:19 AM
--- OUTSIDE RECORDS SUMMARY | 2025-04-18 16:39 | XMS_ITS | Clinical Summary ---
Author Organization [facility] Address Count includes the [facility] [place] [address] Care Team Providers Care Shipping/Receiving Clerk Name Role Phone None, Provider MD Primary [...] 10:40 AM CDT Height 162.6 cm (5' 4) 11/02/2019 10:40 AM CDT Body Mass Index 21.63 11/02/2019 10:40 AM CDT Plan of Treatment Health Maintenance Due Date Last Done Comments Cervical Cancer Screening Pa p Smear (Age 30 to 64) Every 3 Years 1980 Colorectal Cancer Screening Colonoscopy (10 Years) 1980 Annual Physical 02/27/1983 Hepatitis C 02/27/1998 DTaP, Tdap and Td Vaccines ( 1 - Tdap) 02/27/1999 Hepatitis B Vaccines (1 of 3 - 19+ 3-dose series) 02/27/1999 Pneumococcal Vaccine: Pediatrics (0 to 5 Years) and At-Risk Patients (6 to 49 Years) (1 of 2 - PCV) 02/27/1999 HPV Vaccines (1 - 3-dose SCD M series) 02/27/2007 Cervical Cancer Screening Pa p with HPV Testing (Age 30 to 64) Every 5 Years 02/27/2010 Cervical Cancer Screening wi th HPV 02/27/2010 Mammogram Screening 2020 COVID-19 Vaccine (1 - 2024-2 6 season) 2025 Influenza Adult (#1) 2025 03/21/2015, 03/06/2013 Hepatitis A Vaccines Aged Out No long er eligible based on patient's age to complete this topic Meningococcal B Vaccine Aged Out No l onger eligible based on patient's age to complete this topic Meningococcal Vaccine Aged Out No yuan gaston eligible based on patient's age to complete this topic RSV Immunizations Under 20 Months Aged Out No longer eligible b ased on patient's age to complete this topic Insurance Care Teams Shipping/Receiving Clerk Relationship Specialty Start Date End Date None, Provider, PCP - General 11/02/19
--- OUTSIDE RECORDS SUMMARY | 2025-04-18 17:37 | XMS_ITS | Clinical Summary ---
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
--- OUTSIDE RECORDS SUMMARY | 2025-04-18 17:37 | XMS_ITS | Clinical Summary ---
Author Organization [facility] Address [facility] [place] [address] Care Team Providers Care Art Director Name Role Phone None, Provider MD Primary [...] to complete this topic Insurance Care Teams Art Director Relationship Specialty Start Date End Date None, Provider, PCP - General 11/02/19
--- OUTSIDE RECORDS SUMMARY | 2025-04-18 17:37 | XMS_ITS | Clinical Summary ---
Author Organization [facility] Care Team Providers Care Manufacturing Plant Technician Name Role Phone Unavailable Primary Care Provider [...]
--- OUTSIDE RECORDS SUMMARY | 2025-04-18 17:37 | XMS_ITS | Clinical Summary ---
Author Organization [facility] [employer] Address [address] [place] [address] Care Team Providers Care Shipping Coordinator Name Role Phone Mercedes Guzman Primary Care Pr ovider Source Comments [facility] [employer],non-owned Affiliates and Associated Physician Practices is amultiple site organization consisting of ambulatory clinics and hospital sitesin [place], [place], [place] and [place]. This disclosure is being madepursuant to the Care Everywhere program and may not contain all information available regarding this patient. 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
--- OUTSIDE RECORDS SUMMARY | 2025-04-18 17:37 | XMS_ITS | Clinical Summary ---
Author Organization [facility] Address [address] [place] [address] Care Team Providers Care Used Car Manager Name Role Phone Kemi Mcelroy NP Primary Care Provider Erickson Olivares MD Unavailable [phone] Allergies Active Allergy Reactions Criticality Noted Date [...] capsule dexmethylphenidate ER 10 mg capsule,extended release [id number] TK 1 C PO QAM Active erythromycin-cailin [...] (2 - Td or Tdap) 01/29/2031 Insurance [facility] Care Teams Used Car Manager Relationship Specialty Start Date End Date Kemi Mcelroy NP PCP - General Family Medicine 01/24/20 Erickson Olivares MD [address] [id number] Referring Physician Obstetrics and Gynecology 10/22/20
== END 2025-04-18 17:35 | disposition home or self-care (01) ==
PROVIDERS: Emergency Provider Emergency Medicine; PCP Nurse Practitioner Family
DX: H53.122 Transient visual loss, left eye (principal); J45.909 Unspecified asthma, uncomplicated; K58.1 Irritable bowel syndrome with constipation; F41.9 Anxiety disorder, unspecified; F32.A Depression, unspecified; Z86.0100 Personal history of colon polyps, unspecified; Z87.891 Personal history of nicotine dependence; R94.31 Abnormal electrocardiogram [ECG] [EKG]
CPT/HCPCS: 36415; 70496; 70498; 71045; 80053; 81025; 82948; 84484; 85025; 85610; 85730; 93005; 99284; Q9967

== ENCOUNTER 2025-04-27 12:17 | Emergency (ER) | payer OTHER, SELFPAY ==
[2025-04-27 12:26] VITALS: BP 129/67; PULSE 72; RESP 18; TEMP 36.4; O2SAT 100
--- NOTE | 2025-04-27 12:45 | ED.URI ---
HPI - URI/Sore Throat General Chief Complaint: Upper Respiratory Infection Stated Complaint: Sinus Source: patient Mode of arrival: ambulatory Limitations: no limitations History of Present Illness HPI Narrative: This is a 45 y/o female patient with medical history of asthma that presents with reports of URI symptoms since . patient reports she has been using Mucinex and tylenol for treatment. patient did run fever earlier in the week. patient reports in the last 2 days she has been using inhaler more, she denies any chest pain. She denies any fever recently. No nausea, vomiting or diarrhea. No body aches. Patient has a very harsh cough. And rhinorrhea. MD elicited complaint: cough, rhinorrhea and nasal congestion Consistency: constant Severity: mild Description of mucous: green Able to tolerate fluids by mouth: Yes Exacerbating factors: nothing Relieving factors: cough suppressant Context: sick contacts Associated symptoms: denies other symptoms Treatments prior to arrival: acetaminophen and cold medicine Related Data Home Medications ?Medication ?Instructions ?Recorded ?Confirmed ?Last Taken ?Type levonorgestrel (Mirena) 1 device intrauterine ONCE 12/22/19 02/15/25 06/27/21 History cetirizine 10 mg tablet 10 mg PO DAILY 12/26/23 02/15/25 Unknown History fluticasone propionate 50 1 spray intranasal DAILY 12/26/23 02/15/25 Unknown History mcg/actuation nasal spray,suspension hydroxyzine HCl 25 mg tablet 25 mg PO BID PRN Anxiety 12/26/23 02/15/25 Unknown History montelukast 10 mg tablet 10 mg PO QPM 04/29/24 02/15/25 Unknown History famotidine 40 mg tablet 40 mg PO DAILY 09/11/24 02/15/25 Unknown History atomoxetine 25 mg capsule mg PO 04/18/25 Unknown History sumatriptan succinate 50 mg tablet See Rx Instructions PO .COMPLEX 04/18/25 Unknown History (Imitrex) Allergies Allergy/AdvReac Type Severity Reaction Status Date / Time No Known Allergies Allergy Verified 04/27/25 12:18 Review of Systems Review of Systems: All systems reviewed & are unremarkable except as noted in HPI and below PMFSH Past Medical History Medical History Internal hemorrhoids Hx of colonic polyps Bloating LLQ abdominal tenderness Umbilical pain Indigestion LUQ abdominal pain Hx of colonic polyps Irritable bowel syndrome with constipation Alcoholism Anxiety and depression Asthma Hx of supraventricular tachycardia Social History Social History Years smoked: 20 Smoking status: Former smoker Substance use type: does not use Living arrangements: with family Gender identity (if verbalized by the patient): Female Spiritual care concerns: No Exam Const: General: ill appearing Nutritional Appearance: well nourished Orientation/consciousness: patient oriented x3 Limitations: no limitations HENMT: Head: normal to inspection Ears: external ears normal and TM abnormal bulging bilateral Face/Nose/Sinus: Nasal discharge present mucoid Face and sinus: sinus tenderness frontal and maxillary Mouth: Yes Normal oral and palatal mucosa present Teeth and gingiva: dentition normal Throat: posterior oropharynx normal Eyes: Conjunctivae: conjunctivae normal Pupils: Equal, round and reactive pupils present EOM: EOMs intact bilaterally Neck: Neck: normal visual inspection Chest: Chest palpation & inspection: normal inspection of the chest Resp: Auscultation: diminished lung sounds bilateral in the lower lung chavez Cardio: Rate: regular rate Rhythm: regular rhythm GI: GI Palp: Yes Soft to palpation Auscultation: normal bowel sounds Back/Spine/Pelvis: Back: no CVA tenderness Skin: General skin exam: normal color Rashes: no rashes Wounds: no wounds Neuro: General: patient oriented x3 Cranial nerves: Yes Nystagmus not present Speech: normal speech Gait exam (Neuro): Normal gait present Extrem: General: normal to inspection and no clubbing, cyanosis or edema Psych: Mental Status: mental status grossly normal Affect: normal affect Attitude: cooperative Course Course Emergency Course: This is a 45 y/o female patient with medical history of asthma that presents with reports of URI symptoms since . patient reports she has been using Mucinex and tylenol for treatment. patient did run fever earlier in the week. patient reports in the last 2 days she has been using inhaler more, she denies any chest pain. She denies any fever recently. No nausea, vomiting or diarrhea. No body aches. Patient has a very harsh cough. And rhinorrhea. COVID influenza test ordered COVID and influenza negative. Discussed with patient exam findings and treatment options. Will prescribe antibiotic as well as steroid. Educated to continue with her medications as previously prescribed as well as her inhaler. Educated on follow up and when to present to the ER. answered questions to satisfaction, agreeable to plan. educated patient to Increase fluids Rest You ARE? contagious, please avoid? public places, immune compromise, elderly and younger patients. Continue with symptomatic management: -? Cough medication per package instructions -? Tylenol and motrin for fever and pain -? Cough drops for sore throat and cough -? Mucinex for congestion -? Vicks vapor rub -? Cool mist vaporizer Follow up with your primary MD in the next 2-3 days for further exam or Present to the ER for any worrisome sign or symptom patient denies any further needs or concerns to be addressed prior to discharge Level of Care: Express Care Visit Vital Signs Vital signs: Vital Signs Temperature 97.6 F 04/27/25 12:26 Pulse Rate 72 04/27/25 12:26 Respiratory Rate 18 04/27/25 12:26 Blood Pressure 129/67 04/27/25 12:26 Pulse Oximetry 100 04/27/25 12:26 Oxygen Delivery Room Air 04/27/25 12:26 Temperature 97.6 F 04/27/25 12:26 Pulse Rate 72 04/27/25 12:26 Respiratory Rate 18 04/27/25 12:26 Blood Pressure 129/67 04/27/25 12:26 Pulse Oximetry 100 04/27/25 12:26 Oxygen Delivery Room Air 04/27/25 12:26 MDM MDM Narrative Medical decision making narrative: This is a 45 y/o female patient with medical history of asthma that presents with reports of URI symptoms since . patient reports she has been using Mucinex and tylenol for treatment. patient did run fever earlier in the week. patient reports in the last 2 days she has been using inhaler more, she denies any chest pain. She denies any fever recently. No nausea, vomiting or diarrhea. No body aches. Patient has a very harsh cough. And rhinorrhea. COVID influenza test ordered COVID and influenza negative. Discussed with patient exam findings and treatment options. Will prescribe antibiotic as well as steroid. Educated to continue with her medications as previously prescribed as well as her inhaler. Educated on follow up and when to present to the ER. answered questions to satisfaction, agreeable to plan. educated patient to Increase fluids Rest You ARE? contagious, please avoid? public places, immune compromise, elderly and younger patients. Continue with symptomatic management: -? Cough medication per package instructions -? Tylenol and motrin for fever and pain -? Cough drops for sore throat and cough -? Mucinex for congestion -? Vicks vapor rub -? Cool mist vaporizer Follow up with your primary MD in the next 2-3 days for further exam or Present to the ER for any worrisome sign or symptom patient denies any further needs or concerns to be addressed prior to discharge Differential Diagnosis Differential Diagnosis: COVID, influenza, upper respiratory infection Medical Records I have reviewed the following patient records and this information was taken into consideration when formulating the assessment and plan.: previous labs and previous clinic visits Lab Data MDM Lab Attestation statement: I personally reviewed the patient's lab results. Lab results narrative: COVID negative Influenza negative Discharge Plan Discharge Clinical Impression: Upper respiratory infection Qualifiers: URI type: unspecified URI Qualified Code(s): J06.9 - Acute upper respiratory infection, unspecified Patient Disposition: Home Condition: Stable Instructions: Antibiotic Form Additional Instructions: Increase fluids Rest Continue with prednisone as prescribed continue with antibiotic as prescribed continue use of your inhaler as needed for shortness of breath Jeannesalon Francesca for cough Continue with symptomatic management: -? Cough medication per package instructions -? Tylenol and motrin for fever and pain -? Cough drops for sore throat and cough -? Mucinex for congestion -? Vicks vapor rub -? Cool mist vaporizer Follow up with your primary MD in the next 2-3 days for further exam or Present to the ER for any worrisome sign or symptom Patient Language: Guyanese Prescriptions: New prednisone 20 mg tablet 40 mg PO BID Qty: 20 0RF azithromycin 250 mg tablet See Rx Instructions .ROUTE .COMPLEX Qty: 6 0RF Rx Instructions: For 250 mg dose pack: take 500 mg today (day 1), then 250 mg for 4 days (days 2-5) benzonatate 100 mg capsule 100 mg PO TID PRN (Reason: cough) Qty: 15 0RF No Action Mirena 20 mcg/24 hours (5 yrs) 52 mg Intrauterine Device 1 device INTRAUTERINE ONCE cetirizine 10 mg tablet 10 mg PO DAILY hydroxyzine HCl 25 mg tablet 25 mg PO BID PRN (Reason: Anxiety) fluticasone propionate 50 mcg/actuation spray,suspension 1 spray INTRANASAL DAILY montelukast 10 mg tablet 10 mg PO QPM albuterol sulfate [Ventolin HFA] 90 mcg/actuation HFA aerosol inhaler 2 puff inhalation QID PRN (Reason: shortness of breath or wheezing) Qty: 8.5 0RF atomoxetine 25 mg capsule PO sumatriptan succinate [Imitrex] 50 mg tablet See Rx Instructions .ROUTE .COMPLEX Rx Instructions: take 1 tab at onset of headache; if no relief may repeat 1 tab after at least 2 hrs; max = 4 tabs/24 hr Trulance 3 mg tablet 3 mg PO DAILY Qty: 90 3RF famotidine 40 mg tablet 40 mg PO DAILY Follow-up/Referrals: Jamel,POLA Diaz [Primary Care Provider, Unknown] Time of Disposition: 12:47
[2025-04-27 12:51] LABS: EDCOVIDSCREEN Negative (Negative); EDINFLUASCREEN Negative (Negative); EDINFLUBSCREEN Negative (Negative)
== END 2025-04-27 12:55 | disposition home or self-care (01) ==
PROVIDERS: Emergency Provider Nurse Practitioner Family; PCP Nurse Practitioner Family
DX: J06.9 Acute upper respiratory infection, unspecified (principal); Z20.822 Contact with and (suspected) exposure to COVID-19; J45.909 Unspecified asthma, uncomplicated; F41.9 Anxiety disorder, unspecified; Z87.891 Personal history of nicotine dependence
CPT/HCPCS: 87426; 87804; 99213; G0463